=== PATIENT | male | born 1955 | race Caucasian/White ===

== ENCOUNTER 2018-04-08 22:23 | Inpatient (IN) | payer OTHER ==
--- NOTE | 2018-04-08 22:46 | PDOC ---
Attending Attestation - HPI HPI: 04/08/18 22:53 The patient is a 62 year old male, with a significant past medical history of ETOH dependence, who presents to the emergency department via ems from [facility] for ETOH detox for evaluation after a 20 second seizure at the facility just prior to arrival. Allergies: NKDA Documentation prepared by Lilly Mitchell, acting as registered medical transcriptionist for Geovanni Townsend MD <Lilly Mitchell - Last Filed: 04/08/18 22:52> - Resident Resident Name: Luz Marina Patel - ED Attending Attestation I have performed the following: I have examined & evaluated the patient, The case was reviewed & discussed with the resident, I agree w/resident's findings & plan, Exceptions are as noted - Physicial Exam PE: 04/09/18 00:20 Patient is awake, alert, slow to respond, follows simple commands, obese, in no distress Normocephalic, atraumatic PERRLA, EOMI, Conjunctival injection is noted bilaterally; there is no nystagmus mm-dry; several tongue abrasions and ecchymoses and noted bilaterally; there is no loose dentition Neck is supple CTA RRR No rash Moving all extremities symmetrically - Medical Decision Making 04/09/18 00:21 Patient 62-year-old male with history of alcohol abuse who [facility] after a witnessed 20 second generalized tonic-clonic seizure followed by a postictal period. In the ER, patient is nonfocal neurologically , appears somewhat confused and slow to respond, with tongue abrasions and ecchymosis. I suspect alcohol withdrawal seizures. Will obtain head CT to rule out structural abnormality. We'll obtain CBC/CMP/alcohol level. We'll administer thiamin, multivitamins and folic acid. Patient also noted to be tremulous and will receive Ativan when necessary. Likely admission. <Geovanni Townsend - Last Filed: 04/09/18 00:22>
[2018-04-08] MEDS ORDERED: FOLIC ACID INJECTION - 1 MG, THIAMINE HCL 100 MG, MULTIVIT INJECTION ADULT 10 ML in SOD... IVPB ONE (22:48)
--- NOTE | 2018-04-08 23:11 | PDOC ---
History of Present Illness - General Chief Complaint: Seizure Stated Complaint: SEIZURE Time Seen by Provider: 04/08/18 22:37 History Source: Patient, Family Exam Limitations: No Limitations - History of Present Illness Initial Comments: 04/08/18 23:11 62YOM with h/o heavy EtOH use, patient reports never withdrawn from EtOH before , drinks usually 12 beers/day, no drinking for the past 24 hours, who was BIBEMS from [facility] for an apparent seizure. Family witnessed about a 20 second episode of altered level of consciousness and convulsions, which was non-traumatic as the daughter was holding the patient up in his chair. He bit his tongue and bled a small amount on his t-shirt, and both family and EMS report that he was confused subsequently until the point where he arrived in the ED. The patient himself noted tremors and generalized unwell feeling, as well as a wet cough today, but he denies headache, vision change, dizziness, chest pain, SOB, abdominal pain, or other new symptoms. Family expresses concern that he has been having hallucinations over the past 2- 3 weeks which is what prompted them to take him to [facility] last night. [facility] referred them to [facility] for detox. Past History - Past Medical History Allergies/Adverse Reactions: Allergies Allergy/AdvReac Type Severity Reaction Status Date / Time No Known Allergies Allergy Verified 04/08/18 18:15 Home Medications: Ambulatory Orders Lactulose (Oral Use) [Cephulac -] 20 gm PO DAILY #1 bottle 04/14/18 Miscellaneous Medical Supply [Glucometer Device] 1 each SQ ASDIR #1 kit Miscellaneous Medical Supply [Glucometer Test Strips #100] 1 each SQ ASDIR #1 box 04/14/18 Miscellaneous Medical Supply [Lancets] 1 each SQ ASDIR #1 box 04/14/18 metFORMIN HCL [Metformin ER Osmotic] 500 mg PO DAILY #30 [id number] 04/14/18 Anemia: No Asthma: No Cancer: No Cardiac Disorders: No CVA: No COPD: No CHF: No Dementia: No Diabetes: No GI Disorders: No Disorders: No HTN: No Hypercholesterolemia: No Kidney Stones: No Liver Disease: No Seizures: No Thyroid Disease: No - Surgical History Abdominal Surgery: No Appendectomy: No Cardiac Surgery: No Cholecystectomy: No Lung Surgery: No Neurologic Surgery: No Orthopedic Surgery: No - Reproductive History Testicular Surgery: No - Suicide/Smoking/Psychosocial Hx Smoking History: Never smoked Have you smoked in the past 12 months: No Hx Alcohol Use: Yes Drug/Substance Use Hx: No Substance Use Type: Alcohol Hx Substance Use Treatment: No Review of Systems - Review of Systems Able to Perform ROS?: Yes Comments:: GEN: malaise, no fever, chills, generalized weakness, or weight change HEENT: no ear pain, sore throat, vision change, or eye pain CV: no chest pain, palpitations, lightheadedness, or edema RESP: cough, no wheezing, or SOB GI: no abdominal pain, nausea, vomiting, diarrhea, constipation, or white/black/ bloody stool : no dysuria, hematuria, incontinence, retention, bleeding, or discharge MSK: no neck/back pain, muscle weakness/pain, or joint swelling/pain NEURO: seizure, no headache, vertigo, numbness, tingling, or focal weakness PSYCH: EtOH use, hallucinations per family, no behavior change SKIN: no jaundice, no rash ROS otherwise negative except as noted in HPI *Physical Exam - Vital Signs Last Vital Signs Temp Pulse Resp BP Pulse Ox 98.7 F 102 H 20 114/80 92 L 04/08/18 22:39 04/08/18 22:39 04/08/18 22:39 04/08/18 22:39 04/08/18 22:39 - Physical Exam Comments: 04/08/18 23:05 GENERAL: nontoxic but uncomfortable and chronically unwell appearing, A/Ox4, tremulous, answers simple questions appropriately with short answers, HEENT: bilateral scleral injection, PERRLA, EOMI, moist mucous membranes NECK/BACK: no midline ttp, no spinal stepoff or deformity, no hematoma, full ROM , neck supple CARDIOVASCULAR: regular rate/rhythm, normal S1S2, no MGR, strong peripheral pulses, capillary refill <2 seconds, extremities wwp, no edema LUNGS/RESPIRATORY: no respiratory distress, CTAB GI/ABDOMEN: symmetric [id number], normoactive BS, soft, no ttp, no midline pulsatile masses : no CVA tenderness EXTREMITIES: no muscle atrophy, no acute deformity, no edema SKIN: warm and dry, no pallor, no jaundice, no rash, no bruising, no skin breakdown, no cuts, no lesions NEUROLOGICAL: +tongue fasiculations and persistent tremor, no truncal ataxi, GCS 15, CN II-XII grossly intact, 5/5 strength proximally and distally, no facial droop Moderate Sedation - Procedure Monitoring Vital Signs: Procedure Monitoring Vital Signs Temperature 98.7 F 04/08/18 22:39 Pulse Rate 102 H 04/08/18 22:39 Respiratory Rate 20 04/08/18 22:39 Blood Pressure 114/80 04/08/18 22:39 O2 Sat by Pulse Oximetry (%) 92 L 04/08/18 22:39 Heart Score/ECG Review #1 Sinus tach, rate 111, normal axis and intervals, no ischemic ST-T changes. ED Treatment Course - LABORATORY CBC & Chemistry Diagram: 04/14/18 06:22 04/14/18 06:22 - RADIOLOGY Radiology Studies Ordered: Category Date Time Status HEAD CT WITHOUT CONTRAST [CT] Stat CT Scan 04/08/18 22:50 Ordered CXRPORT [CHEST X-RAY PORTABLE*] [RAD] Stat Radiology 04/08/18 22:53 Ordered Medical Decision Making - Medical Decision Making Adult Pt with h/o heavy EtOH use p/w apparent seizure in the setting of 24 hours abstaining from EtOH. Initial Vital Signs Temp Pulse Resp BP Pulse Ox 98.7 F 102 H 20 114/80 92 L 04/08/18 22:39 04/08/18 22:39 04/08/18 22:39 04/08/18 22:39 04/08/18 22:39 Exam: As noted in Physical Exam section. DDX IBNLT: most likely seizure as the patient had postictal period, bit tongue. Most likely cause of seizure toxic-metabolic (e.g. medications, medication withdrawal, street drugs, street drug withdrawal, EtOH, EtOH withdrawal, electrolytes, thyroid), brain lesion (e.g. tumor), stroke, TTP (HUS with AMS, fever, poss seizure), less likely structural (e.g. epilepsy, CVA/TIA), infectious (e.g. UTI, PNA, meningitis), etc. Syncope also considered. W/U ordered: CBCD CMP Mg Phos UA UCx EKG CXR Head CT TX ordered: Banana bag, Thiamine EKG: Reviewed; results as noted in ECG Review section. Laboratory Tests 04/08/18 04/08/18 04/08/18 23:20 23:20 23:20 WBC 5.5 RBC 4.40 Hgb 12.1 Hct 35.0 L MCV 79.6 L MCH 27.5 MCHC 34.5 RDW 19.9 H Plt Count 92 L MPV 7.8 Absolute Neuts (auto) 4.1 Neutrophils % 73.7 Lymphocytes % 18.0 Monocytes % 7.1 Eosinophils % 0.3 Basophils % 0.9 Nucleated RBC % 0 Sodium 136 Potassium 3.5 Chloride 102 Carbon Dioxide 18 L Anion Gap 16 BUN 9 Creatinine 0.9 Creat Clearance w eGFR > 60 Random Glucose 196 H Calcium 8.7 Phosphorus 3.5 Magnesium 2.1 Total Bilirubin 1.3 H AST 125 H ALT 62 H Alkaline Phosphatase 152 H Total Protein 8.6 H Albumin 3.8 Alcohol, Quantitative < 3.0 Reassessment: slight resting tremor, tongue fasciculations improved but still present. Patient was a bit nauseated and was given 4 mg Zofran IV. Vital Signs Temperature 98.7 F 04/08/18 22:39 Pulse Rate 102 H 04/08/18 22:39 Respiratory Rate 20 04/08/18 22:39 Blood Pressure 114/80 04/08/18 22:39 O2 Sat by Pulse Oximetry (%) 92 L 04/08/18 22:39 04/09/18 00:49 I ordered Tdap update as patient cannot recall the date of his last Tdap. Pending CT head results from [facility]. 04/09/18 01:[address] with nothing acute. CXR with no focal consolidation. 04/09/18 02:06 Patient with possible alcohol withdrawal seizure. I have microblogged [facility] for admission. Blank Decision to Admit order placed. Patient's care is endorsed to Dr. Muñiz at the end of my shift. *DC/Admit/Observation/Transfer Diagnosis at time of Disposition: Alcohol withdrawal seizure Qualifiers: Complication of substance-induced condition: with unspecified complication Qualified Code(s): F10.239 - Alcohol dependence with withdrawal, unspecified - Discharge Dispostion Condition at time of disposition: Guarded Decision to Admit order: Yes - Prescriptions - Referrals - Patient Instructions - Post Discharge Activity
[2018-04-08] MEDS ORDERED: THIAMINE HCL 200 MG/2 ML VIAL IVPB ONE (23:20)
[2018-04-08] MEDS ORDERED: LORazepam 2 MG/ML SDV VIAL ONE (23:25)
[2018-04-08 23:31] LABS: BASO % 0.9 % (0-2.0); EOS % 0.3 % (0-4.5); HEMOGLOBIN 12.1 GM/dL (11.7-16.9); MCH 27.5 pg (25.7-33.7); MCHC 34.5 g/dl (32.0-35.9); MEAN CELL VOLUME 79.6 fl (80-96); MEAN PLT VOLUME 7.8 fl (7.5-11.1); MONO % 7.1 % (3.8-10.2); NEUT % 73.7 % (42.8-82.8); PLATELET COUNT 92 K/MM3 (134-434); RDW 19.9 % (11.9-15.9); WHITE BLOOD COUNT 5.5 K/mm3 (4.0-10.0)
[2018-04-08] MEDS ORDERED: ONDANSETRON 4 MG/2 ML VIAL IVPUSH ONE (23:31)
[2018-04-08] MEDS ORDERED: THIAMINE HCL 200 MG/2 ML VIAL ONE (23:38)
[2018-04-08] MEDS ORDERED: ONDANSETRON 4 MG/2 ML VIAL ONE (23:38)
[2018-04-08 23:57] LABS: ALBUMIN 3.8 g/dl (3.4-5.0); ALK PHOS 152 U/L (45-117); ANION GAP 16 MMOL/L (8-16); BILIRUBIN,TOTAL 1.3 mg/dL (0.2-1); BLOOD UREA NITROGEN 9 mg/dL (7-18); CALCIUM 8.7 mg/dL (8.5-10.1); CHLORIDE 102 mmol/L (98-107); CO2 18 mmol/L (21-32); CREATININE 0.9 mg/dL (0.55-1.3); GLUCOSE,RANDOM 196 mg/dL (74-106); MAGNESIUM 2.1 mg/dL (1.8-2.4); PHOSPHOROUS 3.5 mg/dL (2.5-4.9); POTASSIUM 3.5 mmol/L (3.5-5.1); SGOT/AST 125 U/L (15-37); SGPT/ALT 62 U/L (13-61); SODIUM 136 mmol/L (136-145); TOT PROT 8.6 g/dl (6.4-8.2)
[2018-04-09] MEDS ORDERED: DIPHTH,PERTUSS(ACELL),TET 0.5 ML DISP.SYRIN IM ONE ×2 (00:48→01:03)
[2018-04-09 01:43] LABS: INR 1.36 (0.83-1.09); PROTHROMBIN TIME (PATIENT) 16.1 SEC (9.7-13.0)
--- NOTE | 2018-04-09 02:06 | PN ---
Teaching Attending Note Name of Resident: Zulma Vasques ATTENDING PHYSICIAN STATEMENT I saw and evaluated the patient. I reviewed the resident's note and discussed the case with the resident. I agree with the resident's findings and plan as documented. SUBJECTIVE: Patient is a 62 year old man with history of right knee surgery and heavy EtOH use, patient reports never withdrawn from EtOH before, drinks usually 12 beers/ day, no drinking for the past 24 hours, who was BIBEMS from [facility] for an apparent seizure. Family witnessed about a 20 second episode of altered level of consciousness and convulsions, which was non-traumatic as the daughter was holding the patient up in his chair. He bit his tongue and bled a small amount on his t-shirt, and both family and EMS report that he was confused subsequently until the point where he arrived in the ER. The patient himself noted tremors and generalized unwell feeling, as well as a wet cough today, but he denies headache, vision change, dizziness, chest pain, SOB, abdominal pain, or other new symptoms. Family expresses concern that he has been having hallucinations over the past 2-3 weeks which is what prompted them to take him to [facility] last night. [facility] referred them to [facility] for detox. Works as a Manufacturing Storeperson and lives at home with . His 2 daughters are with him in the ER. Nonsmoker. Does not use illicit drugs. He is not on any medications at home. OBJECTIVE: Alert Vital Signs Period Temp Pulse Resp BP Sys/Theodore Pulse Ox Last 24 Hr 98.7 F 102 20 114/80 92 HEENT: No Jaundice, conjucntival injection, +eye redness or discharge, PERRLA, EOMI. Normocephalic, atraumatic. External ears are normal and hearing is grossly intact. No nasal discharge. Neck: Supple, nontender. No palpable adenopathy or thyromegaly. No JVD Chest: Good effort. Clear to auscultation and percussion. Heart: Regular. No S3, rub or murmur Abdomen: Not distended, soft, nontender and no HSM. No rebound or guarding. Normoactive bowel sounds. Ext: Peripheral pulses intact. No leg edema. Limited ROM of both shoulders. Skin: Warm and dry. No petechiae, rash or ecchymosis. Neuro: Alert. Oriented to person and place. No tremors. Sensation grossly intact in all four extremities and DTR are symmetric. Current Medications Generic Name Dose Route Start Last Admin Trade Name Domingo PRN Reason Stop Dose Admin Folic Acid 1 mg/ Thiamine HCl 1,000 mls @ 125 mls/hr 04/08/18 22:48 04/08/18 23:34 100 mg/ Multivitamins/Minerals IVPB 04/09/18 06:47 125 mls/hr 10 ml/ Sodium Chloride ONCE ONE Administration Home Medications Medication Instructions Recorded NK [No Known Home Medication] 04/08/18 Abnormal Lab Results 04/08/18 04/08/18 04/09/18 23:20 23:20 01:00 Hct 35.0 L MCV 79.6 L RDW 19.9 H Plt Count 92 L PT with INR 16.10 H INR 1.36 H Carbon Dioxide 18 L Random Glucose 196 H Total Bilirubin 1.3 H AST 125 H ALT 62 H Alkaline Phosphatase 152 H Total Protein 8.6 H ASSESSMENT AND PLAN: 1. Alcohol withdrawal seizures and Alcohol abuse - Has not had a seizure since being in the ER. No acute pathology on head CT scan. He is already getting a banana bag IV. Will implement CIWA ativan alcohol withdrawal protocol, fall and aspiration precautions. Treat with thiamine and folic acid and monitor electrolytes (Ca,Mg,K,P). Keep him NPO. [facility] Tender patient about abstaining from alcohol and refer to alcohol detox upon discharge. His QTc is 473 so will be cautious with Zofran therapy. Elevated LFTs may signal alcoholic hepatitis. Will get upper abdominal sonogram, hepatitis serology and trend LFTs. Check HbA1c. 2. Anemia - Likely partly due to alcoholism. Low MCV is unusual in this setting so will do basic anemia work up including serial stool guaiacs, reticulocyte count and iron studies. Outpatient colonoscopy. 3. Obesity - Will provide patient all the necessary assistance, counseling and positive reinforcement to facilitate weight loss. Consult painter touch up. 4. DVT prophylaxis - Lovenox 40 mg SQ q 24 hours. 5. Advance directives - Full code
--- NOTE | 2018-04-09 03:28 | HP ---
CHIEF COMPLAINT: alcohol withdrawal sz PCP: HISTORY OF PRESENT ILLNESS: 62 y/o M with hx heavy alcohol use (for past 40 yrs; 2 six-packs of beer most days. Last drink ), noncompliance, who presents to the ED s/p likely alcohol withdrawal seizure that occurred this afternoon. As per pt's daughters at bedside, yesterday at 9AM, pt initially went to [facility] to investigate recent hx of visual hallucinations that pt has been having over the past 2 wks. States that during this time he has also been tremulous. While at , pt had full w/u done and saw a psychiatrist. He was subsequently taken to [facility] for detox this afternoon where he was to begin Librium protocol. While there, his CIWA was 15. During his intake exam, he was noted to have 1 minute of tonic-clonic movements while sitting in a chair, next to his daughter. She states that his eyes rolled to the back of his head, he bit his tongue, however he did not have urinary or fecal incontinence. He was confused after the event and was immediately taken to [facility] ED for further evaluation. Currently while in the ED, pt's CIWA is ~3. Only endorses recent tremulousness and R shoulder pain, worsened upon active movement and palpation. However denies ESCOBAR, fever, chills, recent illnesses, SOB, chest pain or pressure, fall, N /V, or changes in urinary or bowel function. As per daughter, pt is very non-compliant. She has been trying to take him to alcoholics anonymous meetings, as well as doctors appointments but he has refused to go. ER course was notable for: (1) ativan 0.5 mg IVP x 2 (2) banana bag (3) zofran (4) folate, thiamine Recent Travel: denies PAST MEDICAL HISTORY: denies PAST SURGICAL HISTORY: R knee surgery (6 yrs prior) for "issue with cartilage" Social History: lives at home. daughters live nearby. used to work in [employer] but has been unable to do so for the past five months due to his condition Smoking: denies Alcohol: past 40 yrs; 2 six-packs of beer most days. first time at detox yesterday Drugs: denies Family History: denies Allergies No Known Allergies Allergy (Verified 04/08/18 18:15) HOME MEDICATIONS: Home Medications Medication Instructions Recorded NK [No Known Home Medication] 04/08/18 REVIEW OF SYSTEMS CONSTITUTIONAL: Absent: fever, chills, diaphoresis, generalized weakness, malaise, loss of appetite, weight change HEENT: Absent: rhinorrhea, nasal congestion, throat pain, throat swelling, difficulty swallowing, mouth swelling, ear pain, eye pain, visual changes CARDIOVASCULAR: Absent: chest pain, syncope, palpitations, irregular heart rate, lightheadedness , peripheral edema RESPIRATORY: Absent: cough, shortness of breath, dyspnea with exertion, orthopnea, wheezing, stridor, hemoptysis GASTROINTESTINAL: Absent: abdominal pain, abdominal distension, nausea, vomiting, diarrhea, constipation, melena, hematochezia GENITOURINARY: Absent: dysuria, frequency, urgency, hesitancy, hematuria, flank pain, genital pain MUSCULOSKELETAL: Absent: myalgia, arthralgia, joint swelling, back pain, neck pain SKIN: Absent: rash, itching, pallor HEMATOLOGIC/IMMUNOLOGIC: Absent: easy bleeding, easy bruising, lymphadenopathy, frequent infections ENDOCRINE: Absent: unexplained weight gain, unexplained weight loss, heat intolerance, cold intolerance NEUROLOGIC: +seizure Absent: headache, focal weakness or paresthesias, dizziness, unsteady gait, mental status changes, bladder or bowel incontinence PSYCHIATRIC: Absent: anxiety, depression, suicidal or homicidal ideation, hallucinations. PHYSICAL EXAMINATION Vital Signs - 24 hr 04/08/18 04/09/18 22:39 02:20 Temperature 98.7 F Pulse Rate 102 H Pulse Rate [ 115 H Apical] Respiratory 20 20 Rate Blood Pressure 114/80 Blood Pressure 131/76 [Left Arm] O2 Sat by Pulse 92 L 96 Oximetry (%) GENERAL: Lying in bed. AAO x 2 (self, place). in NAD, with blood stain on shirt from saliva HEAD: Normal with no signs of trauma. EYES: Pupils equal, round and reactive to light, extraocular movements intact, sclera anicteric, conjunctiva clear. EARS, NOSE, THROAT: Ears normal, nares patent, oropharynx clear without exudates. Dry mucous membranes NECK: Normal range of motion, supple LUNGS: Breath sounds equal, clear to auscultation bilaterally. No wheezes, and no crackles. No accessory muscle use. HEART: +tachycardic rate and rhythm, without murmur, rub or gallop. ABDOMEN: Soft, nontender, not distended, normoactive bowel sounds, no guarding MUSCULOSKELETAL: +decreased active and passive ROM R shoulder. diffusely TTP LOWER EXTREMITIES: 2+ pt pulses, warm, well-perfused. No calf tenderness. No peripheral edema. NEUROLOGICAL: Cranial nerves II-XII intact. Able to move upper and lower extremities. Sensation intact PSYCHIATRIC: Cooperative. Laboratory Results 04/08/18 04/08/18 04/08/18 23:20 23:20 23:20 MCV 79.6 L Plt Count 92 L AST 125 H ALT 62 H Alkaline Phosphatase 152 H Alcohol, Quantitative < 3.[address]: no acute changes seen, however official read pending EKG: sinus tach, rate 111. no St-T wave changes. Qtc 473ms ASSESSMENT/PLAN: 62 y/o M with hx heavy alcohol use (for past 40 yrs; 2 six-packs of beer most days), noncompliance, who presents to the ED s/p likely alcohol withdrawal seizure that occurred this afternoon. #Likely alcohol withdrawal sz -last drink / as per family. Within the window- 12-48 hrs after . -received ativan 0.5mg x 2 in ED. d/t pt's moderate risk and high initial CIWA ( 15) at detox, will give ativan 1mg q6h AILYN. can use PRN doses as well if needed -received thiamine in ED. can now give glucose in form of D5NS IVF -c/w daily thiamine, folic. -cont to follow lytes -avoid zofran d/t qtc* -sz, fall risk, aspiration precautions. elevate HOB -tele monitoring. recommend keeping pt close to nurse's station for close monitoring -detox consult; -f/u official read Head CT to r/o other causes of sz focus such as masses, bleed etc. pt did not suffer fall as per family #Hx alcohol abuse -continue to follow LFTs, hep serologies -f/u abd sono to check for cirrhosis -nutrition consult #thrombocytopenia likely 2/2 alcohol -cont to follow -if drops further, hold a/c #microcytic anemia -interesting as pt is with alcohol abuse. would expect macrocytic. could have ? bleed, also may have poor nutrition. -f/u iron studies, retic ct -colonoscopy as outpt upon d/c #R shoulder pain -possibly 2/2 DJD. likely acutely exacerbated by sz activity -outpt f/u with additional imaging if does not improve #additional -f/u A1c #F/E/N D5NS 100 cc/hr continue to follow lytes NPO; speech and swallow assessment #PPX lovenox 40mg SQ qd. if platelets continue to decrease, would hold a/c #Dispo tele monitoring, inpt. watch for sz Visit type - Emergency Visit Emergency Visit: Yes ED Registration Date: 04/09/18 Care time: The patient presented to the Emergency Department on the above date and was hospitalized for further evaluation of their emergent condition. - New Patient This patient is new to me today: Yes Date on this admission: 04/09/18 - Critical Care Critical Care patient: No
[2018-04-09] MEDS: DEXTROSE 5%-NORMAL SALINE 1,000 ML IV SCH (04:33)
[2018-04-09 06:00] LABS: BASO % 0.4 % (0-2.0); EOS % 0.1 % (0-4.5); HEMATOCRIT 30.8 % (35.4-49); HEMOGLOBIN 10.1 GM/dL (11.7-16.9); LYMPH % 17.6 % (8-40); MCH 26.4 pg (25.7-33.7); MCHC 32.7 g/dl (32.0-35.9); MEAN CELL VOLUME 80.9 fl (80-96); MONO % 7.8 % (3.8-10.2); NEUT % 74.1 % (42.8-82.8); PLATELET COUNT 71 K/MM3 (134-434); RBC 3.81 M/mm3 (4.00-5.60); RDW 19.5 % (11.9-15.9); RETICULOCYTES 1.54 % (0.5-1.5); WHITE BLOOD COUNT 7.8 K/mm3 (4.0-10.0)
[2018-04-09 06:43] LABS: MAGNESIUM 2.1 mg/dL (1.8-2.4); PHOSPHOROUS 3.3 mg/dL (2.5-4.9)
[2018-04-09] MEDS ORDERED: ENOXAPARIN NA (PORCINE) 40 MG/0.4 ML DISP.SYRIN SQ SCH (10:00)
[2018-04-09] MEDS ORDERED: THIAMINE HCL 200 MG/2 ML VIAL ONE (10:07)
[2018-04-09] MEDS ORDERED: LORazepam 2 MG/ML SDV VIAL ONE (10:08)
[2018-04-09] MEDS ORDERED: FOLIC ACID 1 MG TABLET (FP) ONE (10:08)
[2018-04-09] MEDS ORDERED: ENOXAPARIN NA (PORCINE) 40 MG/0.4 ML DISP.SYRIN SQ ONE (10:08)
[2018-04-09] MEDS: LORazepam 2 MG/ML SDV VIAL IVPUSH SCH ×3 (10:17→23:53)
[2018-04-09] MEDS: FOLIC ACID 5 MG/1 ML SQ SCH (10:18)
[2018-04-09] MEDS: THIAMINE HCL 200 MG/2 ML VIAL IM SCH (10:18)
[2018-04-09] MEDS ORDERED: INSULIN REGULAR HUMAN 100 UNITS/ML *VIAL ONE (10:20)
--- NOTE | 2018-04-09 10:27 | PN ---
Teaching Attending Note ATTENDING PHYSICIAN STATEMENT I saw and evaluated the patient. I reviewed the resident's note and discussed the case with the resident. I agree with the resident's findings and plan as documented. SUBJECTIVE: OBJECTIVE: Vital Signs Temperature 98.2 F 04/09/18 07:00 Pulse Rate 88 04/09/18 07:00 Respiratory Rate 19 04/09/18 07:00 Blood Pressure 120/76 04/09/18 07:00 O2 Sat by Pulse Oximetry (%) 95 04/09/18 07:00 GENERAL: Lying in bed. AAO x 2 (self, place). in NAD, with blood stain on shirt from saliva HEAD: Normal with no signs of trauma. EYES: Pupils equal, round and reactive to light, extraocular movements intact, sclera anicteric, conjunctiva clear. EARS, NOSE, THROAT: Ears normal, oropharynx clear without exudates. Dry mucous membranes NECK: Normal range of motion, supple LUNGS: Breath sounds equal, clear to auscultation bilaterally. No wheezes, and no crackles. No accessory muscle use. HEART: +tachycardic rate and rhythm, without murmur, rub or gallop. ABDOMEN: Soft, nontender, not distended, normoactive bowel sounds, no guarding MUSCULOSKELETAL: +decreased active and passive ROM R shoulder. EXTREMITIES: 2+ pt pulses, warm, well-perfused. No calf tenderness. No peripheral edema. NEUROLOGICAL: Cranial nerves II-XII intact. Able to move upper and lower extremities. Sensation intact PSYCHIATRIC: Cooperative. CBCD WBC 7.8 K/mm3 (4.0-10.0) 04/09/18 05:20 RBC 3.81 M/mm3 (4.00-5.60) L 04/09/18 05:20 Hgb 10.1 GM/dL (11.7-16.9) L 04/09/18 05:20 Hct 30.8 % (35.4-49) L 04/09/18 05:20 MCV 80.9 fl (80-96) 04/09/18 05:20 MCHC 32.7 g/dl (32.0-35.9) 04/09/18 05:20 RDW 19.5 % (11.9-15.9) H 04/09/18 05:20 Plt Count 71 K/MM3 (134-434) L D 04/09/18 05:20 MPV 8.0 fl (7.5-11.1) 04/09/18 05:20 CMP Sodium 136 mmol/L (136-145) 04/08/18 23:20 Potassium 3.5 mmol/L (3.5-5.1) 04/08/18 23:20 Chloride 102 mmol/L (98-107) 04/08/18 23:20 Carbon Dioxide 18 mmol/L (21-32) L 04/08/18 23:20 Anion Gap 16 MMOL/L (8-16) 04/08/18 23:20 BUN 9 mg/dL (7-18) 04/08/18 23:20 Creatinine 0.9 mg/dL (0.55-1.3) 04/08/18 23:20 Creat Clearance w eGFR > 60 (>60) 04/08/18 23:20 Random Glucose 196 mg/dL (74-106) H 04/08/18 23:20 Calcium 8.7 mg/dL (8.5-10.1) 04/08/18 23:20 Total Bilirubin 1.3 mg/dL (0.2-1) H 04/08/18 23:20 AST 125 U/L (15-37) H 04/08/18 23:20 ALT 62 U/L (13-61) H 04/08/18 23:20 Alkaline Phosphatase 152 U/L (45-117) H 04/08/18 23:20 Total Protein 8.6 g/dl (6.4-8.2) H 04/08/18 23:20 Albumin 3.8 g/dl (3.4-5.0) 04/08/18 23:20 Current Medications Generic Name Dose Route Start Last Admin Trade Name Freq PRN Reason Stop Dose Admin Enoxaparin Sodium 40 mg 04/09/18 10:00 04/09/18 10:18 Lovenox - SQ 40 mg DAILY AILYN Administration Folic Acid 1 mg 04/09/18 10:00 04/09/18 10:18 Folic Acid Injection - SQ Not Given DAILY AILYN Dextrose/Sodium Chloride 1,000 mls @ 100 mls/hr 04/09/18 03:15 04/09/18 04:33 D5-Ns - IV 100 mls/hr ASDIR AILYN Administration Lorazepam 1 mg 04/09/18 09:00 04/09/18 10:17 Ativan Injection - IVPUSH 1 mg Q6H-IV AILYN Administration Thiamine HCl 200 mg 04/09/18 10:00 04/09/18 10:18 Vitamin B1 Injection - IM 200 mg DAILY AILYN Administration Home Medications Medication Instructions Recorded NK [No Known Home Medication] 04/08/18 ASSESSMENT AND PLAN: 62 y/o M with hx heavy alcohol use (for past 40 yrs; 2 six-packs of beer most days), noncompliance, who presents to the ED s/p likely alcohol withdrawal seizure that occurred this afternoon. #Likely alcohol withdrawal sz #Hx alcohol abuse #thrombocytopenia #microcytic anemia #R shoulder pain DVT px: lovenox 40mg SQ qd. if platelets continue to decrease, would hold a/c
--- NOTE | 2018-04-09 10:44 | HOSP ---
Subjective - Review of Symptoms Events since last encounter: Patient is feeling better . no signs of withdrawel. Vital Signs Temperature 98.2 F 04/09/18 07:00 Pulse Rate 88 04/09/18 07:00 Respiratory Rate 19 04/09/18 07:00 Blood Pressure 120/76 04/09/18 07:00 O2 Sat by Pulse Oximetry (%) 95 04/09/18 07:00 GENERAL: Lying in bed. AAO x 2 (self, place). in NAD, with blood stain on shirt from saliva HEAD: Normal with no signs of trauma. EYES: Pupils equal, round and reactive to light, extraocular movements intact, sclera anicteric, conjunctiva clear. EARS, NOSE, THROAT: Ears normal, oropharynx clear without exudates. Dry mucous membranes NECK: Normal range of motion, supple LUNGS: Breath sounds equal, clear to auscultation bilaterally. No wheezes, and no crackles. No accessory muscle use. HEART: RRR, without murmur, rub or gallop. ABDOMEN: Soft, nontender, not distended, normoactive bowel sounds, no guarding MUSCULOSKELETAL: decreased active and passive ROM R shoulder. EXTREMITIES: 2+ pt pulses, warm, well-perfused. No calf tenderness. No peripheral edema. NEUROLOGICAL: Cranial nerves II-XII intact. Able to move upper and lower extremities. Sensation intact PSYCHIATRIC: Cooperative. CBCD WBC 7.8 K/mm3 (4.0-10.0) 04/09/18 05:20 RBC 3.81 M/mm3 (4.00-5.60) L 04/09/18 05:20 Hgb 10.1 GM/dL (11.7-16.9) L 04/09/18 05:20 Hct 30.8 % (35.4-49) L 04/09/18 05:20 MCV 80.9 fl (80-96) 04/09/18 05:20 MCHC 32.7 g/dl (32.0-35.9) 04/09/18 05:20 RDW 19.5 % (11.9-15.9) H 04/09/18 05:20 Plt Count 71 K/MM3 (134-434) L D 04/09/18 05:20 MPV 8.0 fl (7.5-11.1) 04/09/18 05:20 CMP Sodium 136 mmol/L (136-145) 04/08/18 23:20 Potassium 3.5 mmol/L (3.5-5.1) 04/08/18 23:20 Chloride 102 mmol/L (98-107) 04/08/18 23:20 Carbon Dioxide 18 mmol/L (21-32) L 04/08/18 23:20 Anion Gap 16 MMOL/L (8-16) 04/08/18 23:20 BUN 9 mg/dL (7-18) 04/08/18 23:20 Creatinine 0.9 mg/dL (0.55-1.3) 04/08/18 23:20 Creat Clearance w eGFR > 60 (>60) 04/08/18 23:20 Random Glucose 196 mg/dL (74-106) H 04/08/18 23:20 Calcium 8.7 mg/dL (8.5-10.1) 04/08/18 23:20 Total Bilirubin 1.3 mg/dL (0.2-1) H 04/08/18 23:20 AST 125 U/L (15-37) H 04/08/18 23:20 ALT 62 U/L (13-61) H 04/08/18 23:20 Alkaline Phosphatase 152 U/L (45-117) H 04/08/18 23:20 Total Protein 8.6 g/dl (6.4-8.2) H 04/08/18 23:20 Albumin 3.8 g/dl (3.4-5.0) 04/08/18 23:20 Current Medications Generic Name Dose Route Start Last Admin Trade Name Domingo PRN Reason Stop Dose Admin Enoxaparin Sodium 40 mg 04/09/18 10:00 04/09/18 10:18 Lovenox - SQ 40 mg DAILY DUNCAN Administration Folic Acid 1 mg 04/09/18 10:00 04/09/18 10:18 Folic Acid Injection - SQ Not Given DAILY DUNCAN Dextrose/Sodium Chloride 1,000 mls @ 100 mls/hr 04/09/18 03:15 04/09/18 04:33 D5-Ns - IV 100 mls/hr ASDIR DUNCAN Administration Lorazepam 1 mg 04/09/18 09:00 04/09/18 10:17 Ativan Injection - IVPUSH 1 mg Q6H-IV DUNCAN Administration Thiamine HCl 200 mg 04/09/18 10:00 04/09/18 10:18 Vitamin B1 Injection - IM 200 mg DAILY DUNCAN Administration Home Medications Medication Instructions Recorded NK [No Known Home Medication] 04/08/[address]: no acute changes seen, however official read pending EKG: sinus tach, rate 111. no St-T wave changes. Qtc 473ms ASSESSMENT/PLAN: Patient is a 62yo male with PMHx heavy alcohol use x 40 yrs; 2 six-packs of beer most days, noncompliance, who presents to the ED s/p likely alcohol withdrawal seizure that occurred this afternoon. #Acute seizure Likely due to alcohol withdrawal will monitor #Hx alcohol dependency drinks around 12 cans of beer on Ativan 1mg duncan. #Thrombocytopenia due to alcohol dependency/liver cirrhosis # Right shoulder pain will monitor DVT: lovenox 40mg started will discontinue Physical Examination Vital Signs: Vital Signs Temperature 98.2 F 04/09/18 07:00 Pulse Rate 88 04/09/18 07:00 Respiratory Rate 19 04/09/18 07:00 Blood Pressure 120/76 04/09/18 07:00 O2 Sat by Pulse Oximetry (%) 95 04/09/18 07:00 Labs: CBC, BMP 04/09/18 05:20 04/08/18 23:20
--- NOTE | 2018-04-09 12:44 | EKG ---
Test Reason : Blood Pressure : / mmHG Vent. Rate : 111 BPM Atrial Rate : 111 BPM P-R Int : 136 ms QRS Dur : 092 ms QT Int : 348 ms P-R-T Axes : 033 -14 042 degrees QTc Int : 473 ms POOR DATA QUALITY, INTERPRETATION MAY BE ADVERSELY AFFECTED SINUS TACHYCARDIA MINIMAL VOLTAGE CRITERIA FOR LVH, MAY BE NORMAL VARIANT NONSPECIFIC ST ABNORMALITY ABNORMAL ECG NO PREVIOUS ECGS AVAILABLE Confirmed by MD JONO, JASON ([id number]) on 04/09/2018 12:44:41 PM Referred By: Confirmed By:JASON DE LA CRUZ MD
[2018-04-09 14:46] VITALS: BMI 27.4
[2018-04-10] MEDS: DEXTROSE 5%-NORMAL SALINE 1,000 ML IV SCH (03:00)
[2018-04-10] MEDS: LORazepam 2 MG/ML SDV VIAL IVPUSH SCH ×3 (06:09→16:09)
[2018-04-10 06:39] LABS: SERUM IRON SATURATION 42 % (15-55); TOTAL IRON BINDING CAPACITY 382 ug/dL (250-450); UIBC 223 ug/dL (111-343)
[2018-04-10] MEDS: THIAMINE HCL 200 MG/2 ML VIAL IM SCH (09:47)
[2018-04-10] MEDS: LIDOCAINE 5% TOPICAL PATCH TP SCH (12:30)
--- NOTE | 2018-04-10 13:27 | PN ---
Physical Exam: SUBJECTIVE: Patient seen and examined. He is complaining of shoulder pain. No overnight events. OBJECTIVE: Vital Signs Period Temp Pulse Resp BP Sys/Theodore Pulse Ox Last 24 Hr 98.3 F-100.1 F 72-108 16-20 118-138/67-84 97-97 GENERAL: The patient is awake, alert, and fully oriented, in no acute distress. HEAD: Normal with no signs of trauma. EYES: Extraocular movements intact, sclera anicteric, conjunctiva clear. No ptosis. ENT: Oropharynx clear without exudates, moist mucous membranes. NECK: Trachea midline, full range of motion, supple. LUNGS: Clear to auscultation bilaterally, no wheezes, no crackles, no accessory muscle use. HEART: Regular rate and rhythm, S1, S2 without murmur, rub or gallop. ABDOMEN: Soft, nontender, nondistended, normoactive bowel sounds, no guarding, no rebound, no hepatosplenomegaly, no masses. EXTREMITIES: 2+ pulses, no edema. NEUROLOGICAL: non focal, normal speech, gait not observed. PSYCH: Normal mood, normal affect. SKIN: Warm, dry, normal turgor, no rashes. Laboratory Results - last 24 hr 04/09/18 04/09/18 05:20 05:20 Iron 159 TIBC 382 Iron Saturation 42 Transferrin 318 Hep Bs Antibody Non reactive Active Medications Generic Name Dose Route Start Last Admin Trade Name Hiramq PRN Reason Stop Dose Admin Folic Acid 1 mg 04/09/18 10:00 04/09/18 10:18 Folic Acid Injection - SQ Not Given DAILY AILYN Dextrose/Sodium Chloride 1,000 mls @ 100 mls/hr 04/09/18 03:15 04/10/18 03:00 D5-Ns - IV 100 mls/hr ASDIR AILYN Administration Lidocaine 1 patch 04/10/18 10:45 Lidoderm Patch - TP DAILY AILYN Lorazepam 1 mg 04/09/18 09:00 04/10/18 06:09 Ativan Injection - IVPUSH 1 mg Q6H-IV AILYN Administration Miscellaneous 1 each 04/10/18 22:00 Lidoderm Patch Removal MC DAILY@2200 AILYN Thiamine HCl 200 mg 04/09/18 10:00 04/10/18 09:47 Vitamin B1 Injection - IM 200 mg DAILY AILYN Administration ASSESSMENT/PLAN: 62 y/o M with history of alcohol use presents to the ED s/p likely alcohol withdrawal seizure. Seizure: -likely caused by alcohol withdrawal -no more seizues in the hospital -cont. ativan 1 mg q6h AILYN. can use PRN doses as well if needed -c/w thiamine, folic acid -monitor electrolytes -fall risk precautions, aspiration precautions -elevate HOB -f/u detox consult; Dr.Madhava Mobley alcohol abuse -continue to follow LFTs, hep serologies pending -nutrition consult -thiamine, folic acid, D5NS Thrombocytopenia - likely due alcohol -71 today, stable microcytic anemia -likely due to GI bleed -colonoscopy as outpt R shoulder pain -possibly OA -Lidoderm patch ordered today -outpt f/u F/E/N D5NS at 100 cc/hr continue to follow lytes NPO advanced to soft diet today PPX lovenox 40mg SQ qd Dispo tele Problem List - Problems (1) Alcohol dependence with uncomplicated withdrawal Code(s): F10.230 - ALCOHOL DEPENDENCE WITH WITHDRAWAL, UNCOMPLICATED (2) Alcohol withdrawal seizure Code(s): F10.239 - ALCOHOL DEPENDENCE WITH WITHDRAWAL, UNSPECIFIED; R56.9 - UNSPECIFIED CONVULSIONS Qualifiers: Complication of substance-induced condition: with unspecified complication Qualified Code(s): F10.239 - Alcohol dependence with withdrawal, unspecified; R56.9 - Unspecified convulsions Visit type - Emergency Visit Emergency Visit: Yes ED Registration Date: 04/09/18 Care time: The patient presented to the Emergency Department on the above date and was hospitalized for further evaluation of their emergent condition. - New Patient This patient is new to me today: Yes Date on this admission: 04/10/18 - Critical Care Critical Care patient: No - Discharge Referral Referred to [facility] Med [facility].: No
[2018-04-10] MEDS: FOLIC ACID 5 MG/1 ML SQ SCH (16:08)
[2018-04-10] MEDS ORDERED: chlordiazePOXIDE HCL 25 MG CAPSULE PO PRN ×2 (17:51→19:54)
[2018-04-10] MEDS ORDERED: THIAMINE HCL 200 MG/2 ML VIAL IVPB SCH (18:00)
--- NOTE | 2018-04-10 18:01 | PN ---
Teaching Attending Note Name of Resident: Minna Easley ATTENDING PHYSICIAN STATEMENT I saw and evaluated the patient. I reviewed the resident's note and discussed the case with the resident. I agree with the resident's findings and plan as documented. SUBJECTIVE: Patient is agitated, wants to get out of the bed. OBJECTIVE: Vital Signs Temperature 99.4 F 04/10/18 13:00 Pulse Rate 102 H 04/10/18 13:00 Respiratory Rate 20 04/10/18 13:00 Blood Pressure 130/78 04/10/18 13:00 O2 Sat by Pulse Oximetry (%) 97 04/10/18 09:00 GENERAL: Lying in bed. mildly agitated , confused. HEAD: Normal with no signs of trauma. EYES: Pupils equal, round and reactive to light, extraocular movements intact, sclera anicteric, conjunctiva clear. EARS, NOSE, THROAT: Ears normal, oropharynx clear without exudates. Dry mucous membranes NECK: Normal range of motion, supple LUNGS: Breath sounds equal, clear to auscultation bilaterally. No wheezes, and no crackles. No accessory muscle use. HEART: RRR, without murmur, rub or gallop. ABDOMEN: Soft, nontender, not distended, normoactive bowel sounds, no guarding EXTREMITIES: 2+ pt pulses, warm, well-perfused. No calf tenderness. No peripheral edema. NEUROLOGICAL: Cranial nerves II-XII intact. Able to move upper and lower extremities. Sensation intact PSYCHIATRIC: Cooperative. CBCD WBC 7.8 K/mm3 (4.0-10.0) 04/09/18 05:20 RBC 3.81 M/mm3 (4.00-5.60) L 04/09/18 05:20 Hgb 10.1 GM/dL (11.7-16.9) L 04/09/18 05:20 Hct 30.8 % (35.4-49) L 04/09/18 05:20 MCV 80.9 fl (80-96) 04/09/18 05:20 MCHC 32.7 g/dl (32.0-35.9) 04/09/18 05:20 RDW 19.5 % (11.9-15.9) H 04/09/18 05:20 Plt Count 71 K/MM3 (134-434) L D 04/09/18 05:20 MPV 8.0 fl (7.5-11.1) 04/09/18 05:20 CMP Sodium 136 mmol/L (136-145) 04/08/18 23:20 Potassium 3.5 mmol/L (3.5-5.1) 04/08/18 23:20 Chloride 102 mmol/L (98-107) 04/08/18 23:20 Carbon Dioxide 18 mmol/L (21-32) L 04/08/18 23:20 Anion Gap 16 MMOL/L (8-16) 04/08/18 23:20 BUN 9 mg/dL (7-18) 04/08/18 23:20 Creatinine 0.9 mg/dL (0.55-1.3) 04/08/18 23:20 Creat Clearance w eGFR > 60 (>60) 04/08/18 23:20 Random Glucose 196 mg/dL (74-106) H 04/08/18 23:20 Calcium 8.7 mg/dL (8.5-10.1) 04/08/18 23:20 Total Bilirubin 1.3 mg/dL (0.2-1) H 04/08/18 23:20 AST 125 U/L (15-37) H 04/08/18 23:20 ALT 62 U/L (13-61) H 04/08/18 23:20 Alkaline Phosphatase 152 U/L (45-117) H 04/08/18 23:20 Total Protein 8.6 g/dl (6.4-8.2) H 04/08/18 23:20 Albumin 3.8 g/dl (3.4-5.0) 04/08/18 23:20 Current Medications Generic Name Dose Route Start Last Admin Trade Name Freq PRN Reason Stop Dose Admin Chlordiazepoxide HCl 25 mg 04/10/18 17:51 Librium - PO 04/13/18 17:50 Q4H PRN WITHDRAWAL(CONT SUBST) Folic Acid 1 mg 04/09/18 10:00 04/10/18 16:08 Folic Acid Injection - SQ 1 mg DAILY AILYN Administration Lidocaine 1 patch 04/10/18 10:45 04/10/18 12:30 Lidoderm Patch - TP 1 patch DAILY AILYN Administration Lorazepam 1 mg 04/09/18 09:00 04/10/18 16:09 Ativan Injection - IVPUSH 1 mg Q6H-IV AILYN Administration Miscellaneous 1 each 04/10/18 22:00 Lidoderm Patch Removal MC DAILY@2200 AILYN Thiamine HCl 250 mg 04/10/18 18:00 Vitamin B1 Injection - IVPB DAILY AILYN Home Medications Medication Instructions Recorded NK [No Known Home Medication] 04/08/[address]: no acute changes seen, however official read pending EKG: sinus tach, rate 111. no St-T wave changes. Qtc 473ms ASSESSMENT/PLAN: Patient is a 62yo male with PMHx heavy alcohol use x 40 yrs; 2 six-packs of beer most days, noncompliance who presents to the ED with questionable alcohol withdrawal seizure #Acute seizure Likely due to alcohol withdrawal will continue to monitor #Hx alcohol dependency drinks around 12 cans of beer on Ativan 1mg ailyn. and on Librium 25mg prn, and on possy now. #Thrombocytopenia due to alcohol dependency/liver cirrhosis # Right shoulder pain Lidocaine patch daily DVT: lovenox 40mg started will discontinue
[2018-04-10] MEDS ORDERED: chlordiazePOXIDE HCL 25 MG CAPSULE PO ONE (19:54)
[2018-04-10] MEDS ORDERED: LORazepam 2 MG/ML SDV VIAL IVPUSH ONE ×2 (20:39→21:20)
--- NOTE | 2018-04-10 20:48 | RAPID ---
Physical Examination Vital Signs: Vital Signs Temperature 100.9 F H 04/10/18 17:00 Pulse Rate 122 H 04/10/18 17:00 Respiratory Rate 20 04/10/18 17:00 Blood Pressure 147/87 04/10/18 17:00 O2 Sat by Pulse Oximetry (%) 97 04/10/18 09:00 Labs: CBC, BMP 04/09/18 05:20 04/08/18 23:20 Rapid Response - Rapid Response Assessment: rapid response called pt agitated, anxious, refusing PO librium and trying to get out of bed and fighting restraints tachycardia to 140s and diaphoretic in distress CIWA 25 will give STAT ativan 2mg IV for DTs and will increase to standing 2mg q3h prn will closely monitor response and monitor vitals and CIWA
[2018-04-10] MEDS ORDERED: LORazepam 2 MG/ML SDV VIAL ONE (21:26)
[2018-04-10] MEDS: LIDOCAINE PATCH REMOVAL MC SCH (22:05)
[2018-04-10] MEDS ORDERED: diazePAM CARPU-JECT 10 MG/2 ML DISP.SYRIN IVPUSH ONE (22:42)
--- NOTE | 2018-04-10 22:45 | PN ---
[facility] Progress Note (SOAP) Subjective: patient referred for consultation , transferred from [facility] after witnessed seizure - per MR h/o ETOh use 6-pk beer x 2 40 years with no prior detox episode , [facility] . Patient is poor historian , aware of self and , unaware of place, insists he has to get up and go to work . Prior events this evening noted - patient currently on soft restraints, monitored 1:1 by nursing , agitated , trying to undress himself , resting in bed ( hallway ) . Current meds : Ativan q 3 hrs prn , has been given 4 mg today . Home Medication List Medication Instructions Recorded Confirmed Type NK [No Known Home Medication] 04/08/18 04/08/18 History Objective: 04/10/18 22:40 CBC WBC 7.8 K/mm3 (4.0-10.0) 04/09/18 05:20 RBC 3.81 M/mm3 (4.00-5.60) L 04/09/18 05:20 Hgb 10.1 GM/dL (11.7-16.9) L 04/09/18 05:20 Hct 30.8 % (35.4-49) L 04/09/18 05:20 MCV 80.9 fl (80-96) 04/09/18 05:20 MCH 26.4 pg (25.7-33.7) 04/09/18 05:20 MCHC 32.7 g/dl (32.0-35.9) 04/09/18 05:20 RDW 19.5 % (11.9-15.9) H 04/09/18 05:20 Plt Count 71 K/MM3 (134-434) L D 04/09/18 05:20 MPV 8.0 fl (7.5-11.1) 04/09/18 05:20 Absolute Neuts (auto) 5.8 K/mm3 (1.5-8.0) 04/09/18 05:20 Neutrophils % 74.1 % (42.8-82.8) 04/09/18 05:20 Lymphocytes % 17.6 % (8-40) 04/09/18 05:20 Monocytes % 7.8 % (3.8-10.2) 04/09/18 05:20 Eosinophils % 0.1 % (0-4.5) 04/09/18 05:20 Basophils % 0.4 % (0-2.0) 04/09/18 05:20 Nucleated RBC % 0 % (0-0) 04/09/18 05:20 Retic Count 1.54 % (0.5-1.5) H 04/09/18 05:20 CMP Sodium 136 mmol/L (136-145) 04/08/18 23:20 Potassium 3.5 mmol/L (3.5-5.1) 04/08/18 23:20 Chloride 102 mmol/L (98-107) 04/08/18 23:20 Carbon Dioxide 18 mmol/L (21-32) L 04/08/18 23:20 Anion Gap 16 MMOL/L (8-16) 04/08/18 23:20 BUN 9 mg/dL (7-18) 04/08/18 23:20 Creatinine 0.9 mg/dL (0.55-1.3) 04/08/18 23:20 Creat Clearance w eGFR > 60 (>60) 04/08/18 23:20 Random Glucose 196 mg/dL (74-106) H 04/08/18 23:20 Hemoglobin A1c % 7.3 % (4.2-6.3) H 04/09/18 04:30 Calcium 8.7 mg/dL (8.5-10.1) 04/08/18 23:20 Phosphorus 3.3 mg/dL (2.5-4.9) 04/09/18 05:20 Magnesium 2.1 mg/dL (1.8-2.4) 04/09/18 05:20 Iron 159 ug/dL (38-169) 04/09/18 05:20 TIBC 382 ug/dL (250-450) 04/09/18 05:20 Iron Saturation 42 % (15-55) 04/09/18 05:20 Transferrin 318 mg/dL (200-370) 04/09/18 05:20 Total Bilirubin 1.3 mg/dL (0.2-1) H 04/08/18 23:20 AST 125 U/L (15-37) H 04/08/18 23:20 ALT 62 U/L (13-61) H 04/08/18 23:20 Alkaline Phosphatase 152 U/L (45-117) H 04/08/18 23:20 Total Protein 8.6 g/dl (6.4-8.2) H 04/08/18 23:20 Albumin 3.8 g/dl (3.4-5.0) 04/08/18 23:20 04/10/18 23:26 Vital Signs - 24 hr 04/10/18 04/10/18 04/10/18 01:59 05:00 09:00 Temperature 98.9 F 99.5 F 99.2 F Pulse Rate 105 H 103 H 108 H Respiratory 20 20 20 Rate Blood Pressure 137/77 118/67 130/83 O2 Sat by Pulse 97 Oximetry (%) 04/10/18 04/10/18 04/10/18 13:00 16:00 17:00 Temperature 99.4 F 100.9 F H Pulse Rate 102 H 110 H 122 H Respiratory 20 20 20 Rate Blood Pressure 130/78 130/72 147/87 O2 Sat by Pulse Oximetry (%) 04/10/18 04/10/18 21:00 22:00 Temperature 99.0 F Pulse Rate 108 H Respiratory 20 Rate Blood Pressure 154/88 O2 Sat by Pulse 98 99 Oximetry (%) Assessment: etoh withdrawal , complicated 04/10/18 23:26 Plan: Diazepam IV - per pharmacy not available , will start Arivan 4 mg q 6 hrs and continue prn for breakthrough symptoms , encourage fluids Ammonia level . pt unable to tolerate p.o. meds at this time
[2018-04-10] MEDS ORDERED: chlordiazePOXIDE HCL 25 MG CAPSULE PO SCH (23:00)
[2018-04-11 00:07] LABS: HEPATITIS B CORE ANTIBODY,IGM Negative (Negative)
[2018-04-11] MEDS: LORazepam 2 MG/ML SDV VIAL IVPUSH SCH ×5 (00:15→23:19)
[2018-04-11] MEDS: LORazepam 2 MG/ML SDV VIAL IVPUSH PRN ×3 (03:32→15:27)
[2018-04-11] MEDS: THIAMINE HCL 200 MG/2 ML VIAL IVPB SCH ×4 (05:55→22:26)
[2018-04-11] MEDS ORDERED: diazePAM CARPU-JECT 10 MG/2 ML DISP.SYRIN IVPUSH SCH (06:00)
[2018-04-11 07:33] LABS: ALBUMIN 3.3 g/dl (3.4-5.0); ALK PHOS 82 U/L (45-117); ANION GAP 7 MMOL/L (8-16); BILIRUBIN,TOTAL 2.4 mg/dL (0.2-1); BLOOD UREA NITROGEN 5 mg/dL (7-18); CALCIUM 7.9 mg/dL (8.5-10.1); CHLORIDE 104 mmol/L (98-107); CO2 26 mmol/L (21-32); CREATININE 0.6 mg/dL (0.55-1.3); GLUCOSE,RANDOM 146 mg/dL (74-106); MAGNESIUM 1.8 mg/dL (1.8-2.4); PHOSPHOROUS 1.7 mg/dL (2.5-4.9); SGOT/AST 85 U/L (15-37); SGPT/ALT 42 U/L (13-61); SODIUM 137 mmol/L (136-145); TOT PROT 7.2 g/dl (6.4-8.2)
[2018-04-11 07:36] LABS: POTASSIUM 2.5 mmol/L (3.5-5.1)
[2018-04-11] MEDS ORDERED: POTASSIUM CHLORIDE TABS 20 MEQ TABLET.ER (FP) PO ONE ×2 (08:23→20:10)
[2018-04-11] MEDS: KCL 10 MEQ IVPB 10 MEQ/100 ML INFUS.BAG IVPB SCH ×6 (08:35→22:59)
[2018-04-11 08:38] LABS: HEMATOCRIT 30.4 % (35.4-49); HEMOGLOBIN 10.8 GM/dL (11.7-16.9); MCH 28.6 pg (25.7-33.7); MCHC 35.3 g/dl (32.0-35.9); MEAN PLT VOLUME 8.3 fl (7.5-11.1); PLATELET COUNT 82 K/MM3 (134-434); RBC 3.75 M/mm3 (4.00-5.60); RDW 19.9 % (11.9-15.9); WHITE BLOOD COUNT 9.1 K/mm3 (4.0-10.0)
--- NOTE | 2018-04-11 09:17 | CONSULT ---
Admitting History and Physical - Primary Care Physician PCP: Ko Deshpande - Admission History of Present Illness: 62 y/o M with history of alcohol use presents to the ED s/p likely alcohol withdrawal seizure. Selected Entries 04/09/18 04/09/18 04/09/18 07:00 14:40 17:00 Breakfast Supper Temperature 98.2 F 99.3 F 98.3 F 04/09/18 04/09/18 04/10/18 19:17 22:00 01:59 Breakfast Supper NPO Temperature 100.1 F H 98.9 F 04/10/18 04/10/18 04/10/18 05:00 09:00 09:55 Breakfast NPO Supper Temperature 99.5 F 99.2 F 04/10/18 04/10/18 04/10/18 13:00 17:00 19:32 Breakfast Supper 50% Temperature 99.4 F 100.9 F H 04/10/18 04/11/18 04/11/18 22:00 02:00 06:00 Breakfast Supper Temperature 99.0 F 98.5 F 98.2 F Laboratory Tests 04/11/18 05:30 WBC 9.1 Started on soft diet/thin liquids. Yesterday afternoon, rapid response called as pt became agitated, anxious, refusing PO librium and trying to get out of bed and fighting restraints. Tachycardia to 140s and diaphoretic and was in distress STAT ativan 2mg IV for DTs and increased to standing 2mg q3h prn Pt seen just waking up. Confused but verbal, cooperative. History Source: Medical Record Limitations to Obtaining History: Clinical Condition - Smoking History Smoking history: Never smoked Have you smoked in the past 12 months: No - Alcohol/Substance Use Hx Alcohol Use: Yes (12 daily) History - Admission Reason For Visit: ALCOHOL WITHDRAWAL SEIZURE - Diagnostics X-ray: Report Reviewed CT Scan: Report Reviewed - General Mental Status: Awake and Alert, Able to Follow Commands, Vague, Confused Attention: Distractible, Mild Impairment Ability to Follow Directions: Fair Head/Neck Control: Good - Hearing Hearing: Normal Hearing Aide: No With Patient: No Speech Evaluation - Communication Primary Language: SOUTH KOREAN Secondary Language: SUDANESE (functional) Communication: Yes: Within Normal Limits Oral Expression Ability: Yes: No Impairment - Speech Production Able to Make Needs Known: Yes: WNL Intelligibility: Yes: Mildly Impaired - Speech Characteristics Voice Loudness: Normal Voice Pitch: Yes: Normal Voice Phonatory-based Quality: Yes: Normal Speech Pattern: Normal Nasal Resonance: Normal Articulation: Yes: Imprecise (mild, likely secondary to medication.) Rate of Speech: Too Slow (mild,likely secondary to medication.) - Language/Auditory Comprehension Follows: Yes: 1 Stage Simple Commands Observation: Able to respond to yes/no queries: Yes, Benefits from Repetiton: Yes - Language/Verbal Expression Able to Communicate Wants and Needs: Yes: WNL Functional Communication Status: Yes: WNL - Swallow Evaluation/Bedside Assessment Current Nutritional Intake: Soft, Thin Liquids Oral Secretions: Yes: WFL Dentition: Yes: Adequate Facial Symmetry at Rest: Symmetrical Facial Symmetry on Retraction: Symmetrical Against Resistance Opening: Normal Against Resistance Closing: Normal Pucker Lips: Normal Smile: Normal Lingual Movement: Normal, Symmetric Lingual Speed of Movement: Reduced (likely secondary to medication.) Lingual Movement Strgth Against Opposition: Normal Lingual Movement Characteristics: Normal Laryngeal Elevation: WFL Laryngeal Movement: Able to Palpate Rate of Intake: WFL Bolus Size: WFL Labial Seal: WFL Chewing: WFL (extended.) Oral Prep Time: Increased A-P Transit: WFL Pocketing: Present Left Timing of Swallow: Delayed Coughing/Throat Clear: No Change in Voice: No Recommendations - Speech Evaluation, Impression/Plan Impression: Articulation mildly imprecise and reduced in velocity likely secondary to medication.Confused but cooperative. Verbal. Burkinan is functional. Swallowing is functional. Extended mastication likely secondary to distractibility. No overt signs of aspiration. - Dysphagia Impressions/Plan Dysphagia Impressions: Mild Impairment *Silent aspiration: cannot be R/O at bedside Dysphagia Treatment Plan: Small Bites, Chin Tuck/Down, Clear Pocket Food, Safe Rate, 1/2 tsp. at a time, Elevate HOB during feed, Other (Alternate solids with wiquids and complete meal with liquid. Assistance with meals.) Recommendations: Other (Re-orient pt frequently.) - Recommendations Diet Consistency: Regular (soft) Medication Administration: Whole with water Liquids: Thin Liquids
[2018-04-11] MEDS: FOLIC ACID 5 MG/1 ML SQ SCH (09:54)
[2018-04-11] MEDS: LIDOCAINE 5% TOPICAL PATCH TP SCH (09:54)
[2018-04-11] MEDS: ACETAMINOPHEN 325 MG TABLET (FP) PO PRN (12:01)
--- NOTE | 2018-04-11 15:40 | PN ---
Progress Note (short form) - Note Progress Note: ID consult dictated impl/reccd intermittent fever ETOH withdrawal wtoh seizure prior to admission at detox 04/08 agree with cultures no signs infection on exam observe off antibiotics Problem List - Problems (1) Fever Code(s): R50.9 - FEVER, UNSPECIFIED (2) Alcohol dependence with uncomplicated withdrawal Code(s): F10.230 - ALCOHOL DEPENDENCE WITH WITHDRAWAL, UNCOMPLICATED (3) Alcohol withdrawal seizure Code(s): F10.239 - ALCOHOL DEPENDENCE WITH WITHDRAWAL, UNSPECIFIED; R56.9 - UNSPECIFIED CONVULSIONS Qualifiers: Complication of substance-induced condition: with unspecified complication Qualified Code(s): F10.239 - Alcohol dependence with withdrawal, unspecified; R56.9 - Unspecified convulsions
--- NOTE | 2018-04-11 17:33 | PN ---
Physical Exam: SUBJECTIVE: Patient seen and examined at bedside this morning. Patient has been in and out of wakefulness all day. Rapid response called last night as patient was agitated, tachycardic, and in distress, refusing PO Librium. Patient was also seen by Dr. Prabhakar. Ativan 4mg q6h AILYN (5 doses) and 2mg q3h PRN were ordered. This morning, patient also presented with fever of 102F. OBJECTIVE: Vital Signs Period Temp Pulse Resp BP Sys/Theodore Pulse Ox Last 24 Hr 98.2 F-99.6 F 108-122 20-20 126-154/69-88 95-99 GENERAL: The patient is lethargic, arousable to voice and pain. HEAD: Normal with no signs of trauma. EYES/HEENT: PERRLA, dry mucous membranes. NECK: Trachea midline, full range of motion, supple. LUNGS: Breath sounds equal, clear to auscultation bilaterally. HEART: Tachycardic, without murmur, rub or gallop. ABDOMEN: Soft, nontender, nondistended, normoactive bowel sounds. EXTREMITIES: 2+ pulses, warm, well-perfused, no edema. SKIN: Warm, dry, normal turgor. Laboratory Results - last 24 hr 04/09/18 04/11/18 04/11/18 05:20 00:00 05:30 WBC 9.1 RBC 3.75 L Hgb 10.8 L Hct 30.4 L MCV 81.0 MCH 28.6 MCHC 35.3 RDW 19.9 H Plt Count 82 L MPV 8.3 Sodium Potassium Chloride Carbon Dioxide Anion Gap BUN Creatinine Creat Clearance w eGFR Random Glucose Calcium Phosphorus Magnesium Total Bilirubin Direct Bilirubin AST ALT Alkaline Phosphatase Ammonia 67.40 H Total Protein Albumin Hep B Core IgM Ab Negative Hepatitis Be Antigen Negative 04/11/18 04/11/18 05:30 05:30 WBC RBC Hgb Hct MCV MCH MCHC RDW Plt Count MPV Sodium 137 Potassium 2.5 L* Chloride 104 Carbon Dioxide 26 Anion Gap 7 L BUN 5 L Creatinine 0.6 Creat Clearance w eGFR > 60 Random Glucose 146 H Calcium 7.9 L Phosphorus 1.7 L Magnesium 1.8 Total Bilirubin 2.4 H Direct Bilirubin 1.1 H AST 85 H ALT 42 Alkaline Phosphatase 82 Ammonia Total Protein 7.2 Albumin 3.3 L Hep B Core IgM Ab Hepatitis Be Antigen Active Medications Generic Name Dose Route Start Last Admin Trade Name Domingo PRN Reason Stop Dose Admin Acetaminophen 650 mg 04/11/18 10:13 04/11/18 12:01 Tylenol - PO 650 mg Q6H PRN Administration Fever Or Pain Folic Acid 1 mg 04/09/18 10:00 04/11/18 09:54 Folic Acid Injection - SQ 1 mg DAILY AILYN Administration Lidocaine 1 patch 04/10/18 10:45 04/11/18 09:54 Lidoderm Patch - TP 1 patch DAILY AILYN Administration Lorazepam 2 mg 04/10/18 20:50 04/11/18 15:27 Ativan Injection - IVPUSH 2 mg Q3H PRN Administration ANXIETY Lorazepam 4 mg 04/10/18 23:30 04/11/18 12:01 Ativan Injection - IVPUSH 04/11/18 23:31 4 mg Q6H AILYN Administration Miscellaneous 1 each 04/10/18 22:00 04/10/18 22:05 Lidoderm Patch Removal MC Not Given DAILY@2200 AILYN Thiamine HCl 250 mg 04/10/18 22:00 04/11/18 15:27 Vitamin B1 Injection - IVPB 250 mg TID AILYN Administration ASSESSMENT/PLAN: Patient is a 62 year old male with past medical history of heavy EtOH abuse, presented to the ED after an episode of witnessed tonic-clonic seizure at [facility]. #Seizure: likely 2/2 alcohol withdrawal -No episodes of seizures in the hospital -Detox (Dr. Prabhakar) consulted. Recommendations appreciated. -Ativan 4mg q6h for 5 doses -Ativan 2mg q3h PRN -Ammonia level - 67.4 -Hepatitis panel - pending -Thiamine 100mg daily -Folic acid 1mg daily -Follow LFTs -Nutrition consult. -Electrolytes monitor and repleted PRN -Fall risk precautions -Aspiration precautions -Elevate HOB #Fever: unknown etiology -Blood Cx and UA/Urine cx ordered -ID (Dr. Newsome) consulted. REcommendations appreciated. -No signs of infection on exam -Will await cultures -Will observe off antibiotics #Hypokalemia -K 2.5 -IV KCL 10meq x3 bags given -K-dur 20 meq PO -Repeat bmp #Transaminitis likely 2/2 EtOH abuse -AST/ALT 85/42, improving -RUQ US: fatty liver vs hepatocellular disease -Thiamine 100mg daily -Folic acid 1mg daily -Follow LFTs #Thrombocytopenia -likely 2/2 EtOH abuse -82 today, improving #Microcytic anemia -likely due to GI bleed, poor oral intake, EtOH abuse -Colonoscopy as outpatient #FEN -Not on any standing fluids -Hypokalemia, replete PRN -Routine bmp monitoring -Regular diet as tolerated #Prophylaxis -Lovenox 40mg sq daily #Disposition -full code -Tele Visit type - Emergency Visit Emergency Visit: Yes ED Registration Date: 04/09/18 Care time: The patient presented to the Emergency Department on the above date and was hospitalized for further evaluation of their emergent condition. - New Patient This patient is new to me today: Yes Date on this admission: 04/11/18 - Critical Care Critical Care patient: No
[2018-04-11 17:34] LABS: ANION GAP 5 MMOL/L (8-16); BLOOD UREA NITROGEN 7 mg/dL (7-18); CALCIUM 7.8 mg/dL (8.5-10.1); CHLORIDE 104 mmol/L (98-107); CO2 29 mmol/L (21-32); CREATININE 0.5 mg/dL (0.55-1.3); GLUCOSE,RANDOM 135 mg/dL (74-106); SODIUM 138 mmol/L (136-145)
--- NOTE | 2018-04-11 17:40 | PN ---
Progress Note (short form) - Note Progress Note: ID consult dictated impl/reccd intermittent fever ETOH withdrawal etoh seizure prior to admission at detox 04/08 agree with cultures no signs infection on exam observe off antibiotics Problem List - Problems (1) Fever Code(s): R50.9 - FEVER, UNSPECIFIED (2) Alcohol dependence with uncomplicated withdrawal Code(s): F10.230 - ALCOHOL DEPENDENCE WITH WITHDRAWAL, UNCOMPLICATED (3) Alcohol withdrawal seizure Code(s): F10.239 - ALCOHOL DEPENDENCE WITH WITHDRAWAL, UNSPECIFIED; R56.9 - UNSPECIFIED CONVULSIONS Qualifiers: Qualified Code(s): F10.239 - Alcohol dependence with withdrawal, unspecified ; R56.9 - Unspecified convulsions
--- NOTE | 2018-04-11 18:28 | CONS ---
INFECTIOUS DISEASE CONSULTATION DATE OF CONSULTATION: DATE OF DICTATION: 04/13/2018 REQUESTING PHYSICIAN: The hospitalist service. This is a 62-year-old man who was admitted from [facility] from the detoxification program. He has a history of a 40-year use of heavy alcohol, two 6-packs of beers most days, who presented to the ER status post an alcohol withdrawal seizure that occurred that afternoon. He had initially gone to [facility] because he had been having visual hallucinations, was very tremulous. He had a full workup done then. He was taken to [facility] for detoxification where he began a Librium protocol. While there, he was noted to have a 1-minute tonic-clonic seizure activity while sitting in a chair. He was brought to the emergency room on the . Since that time, he has had worsening alcohol withdrawal. He was seen by the detoxification doctors and required an Ativan protocol. PAST MEDICAL HISTORY: Notable for heavy alcohol use. He has had right knee surgery 6 years ago. SOCIAL HISTORY: He lives at home. He was working as a automotive airconditioning mechanic, but has been unable to do so for the last 5 months. No smoking history of substance use. FAMILY HISTORY: Unremarkable. ALLERGIES: He has no known drug allergies. All this history was obtained from the chart. Medication list at home was not available. REVIEW OF SYSTEMS: Currently, he has had some intermittent low-grade fever. The last was 100.9 yesterday, and prior to that was 100.1 the prior day. I am asked him to him for these fevers. PHYSICAL EXAMINATION: General: He is currently arousable, following simple commands, but otherwise is not cooperating. The director school of nursing reports that she is able to feed him and he does not cough and he is eating. Vital Signs: Temperature is 99.6, pulse of 112, blood pressure 126/76. Respiratory rate is 20. His O2 saturation is 95%. HEENT: He is normocephalic. His eyes are anicteric. He has no thrush. He has dry oral mucosa. Lungs: Clear to auscultation. Heart: Regular rate and rhythm. Abdomen: Soft, nontender. Extremities: Without edema. He has a large ecchymosis on his left upper arm. DIAGNOSTIC DATA: White count is 9.1, hemoglobin 10.8, platelets are 82,000. INR is 1.3. BUN is 7 and creatinine 0.5. Total bilirubin is 2.4 with an AST of 85, ALT of 42, alkaline phosphatase 82. Ammonia was 67. Alcohol level was negative. Chest x-ray was negative for infiltrate. In summary, this is a 62-year-old man with intermittent fever, alcohol withdrawal, witnessed alcohol withdrawal seizure prior to admission. I would agree with blood cultures. He has no signs of infection on exam off antibiotics at present. Further recommendations to follow. Willa [id number]
[2018-04-11 18:31] LABS: POTASSIUM 2.7 mmol/L (3.5-5.1)
--- NOTE | 2018-04-11 18:44 | PN ---
Teaching Attending Note Name of Resident: Arline Magallon ATTENDING PHYSICIAN STATEMENT I saw and evaluated the patient. I reviewed the resident's note and discussed the case with the resident. I agree with the resident's findings and plan as documented. SUBJECTIVE: Patient is confused. OBJECTIVE: Vital Signs Temperature 99.6 F 04/11/18 14:00 Pulse Rate 112 H 04/11/18 14:00 Respiratory Rate 20 04/11/18 06:00 Blood Pressure 126/76 04/11/18 14:00 O2 Sat by Pulse Oximetry (%) 95 04/11/18 06:00 GENERAL: The patient is lethargic, arousable to voice and pain. HEAD: Normal with no signs of trauma. EYES/HEENT: PERRLA, dry mucous membranes. NECK: Trachea midline, full range of motion, supple. LUNGS: Breath sounds equal, clear to auscultation bilaterally. HEART: Tachycardic, without murmur, rub or gallop. ABDOMEN: Soft, nontender, nondistended, normoactive bowel sounds. EXTREMITIES: 2+ pulses, warm, well-perfused, no edema. SKIN: Warm, dry, normal turgor. CBCD WBC 9.1 K/mm3 (4.0-10.0) 04/11/18 05:30 RBC 3.75 M/mm3 (4.00-5.60) L 04/11/18 05:30 Hgb 10.8 GM/dL (11.7-16.9) L 04/11/18 05:30 Hct 30.4 % (35.4-49) L 04/11/18 05:30 MCV 81.0 fl (80-96) 04/11/18 05:30 MCHC 35.3 g/dl (32.0-35.9) 04/11/18 05:30 RDW 19.9 % (11.9-15.9) H 04/11/18 05:30 Plt Count 82 K/MM3 (134-434) L 04/11/18 05:30 MPV 8.3 fl (7.5-11.1) 04/11/18 05:30 CMP Sodium 138 mmol/L (136-145) 04/11/18 15:30 Potassium 2.7 mmol/L (3.5-5.1) L* 04/11/18 15:30 Chloride 104 mmol/L (98-107) 04/11/18 15:30 Carbon Dioxide 29 mmol/L (21-32) 04/11/18 15:30 Anion Gap 5 MMOL/L (8-16) L 04/11/18 15:30 BUN 7 mg/dL (7-18) 04/11/18 15:30 Creatinine 0.5 mg/dL (0.55-1.3) L 04/11/18 15:30 Creat Clearance w eGFR > 60 (>60) 04/11/18 15:30 Random Glucose 135 mg/dL (74-106) H 04/11/18 15:30 Calcium 7.8 mg/dL (8.5-10.1) L 04/11/18 15:30 Total Bilirubin 2.4 mg/dL (0.2-1) H 04/11/18 05:30 AST 85 U/L (15-37) H 04/11/18 05:30 ALT 42 U/L (13-61) 04/11/18 05:30 Alkaline Phosphatase 82 U/L (45-117) 04/11/18 05:30 Total Protein 7.2 g/dl (6.4-8.2) 04/11/18 05:30 Albumin 3.3 g/dl (3.4-5.0) L 04/11/18 05:30 Current Medications Generic Name Dose Route Start Last Admin Trade Name Freq PRN Reason Stop Dose Admin Acetaminophen 650 mg 04/11/18 10:13 04/11/18 12:01 Tylenol - PO 650 mg Q6H PRN Administration Fever Or Pain Folic Acid 1 mg 04/09/18 10:00 04/11/18 09:54 Folic Acid Injection - SQ 1 mg DAILY AILYN Administration Lidocaine 1 patch 04/10/18 10:45 04/11/18 09:54 Lidoderm Patch - TP 1 patch DAILY AILYN Administration Lorazepam 2 mg 04/10/18 20:50 04/11/18 15:27 Ativan Injection - IVPUSH 2 mg Q3H PRN Administration ANXIETY Lorazepam 4 mg 04/10/18 23:30 04/11/18 12:01 Ativan Injection - IVPUSH 04/11/18 23:31 4 mg Q6H AILYN Administration Miscellaneous 1 each 04/10/18 22:00 04/10/18 22:05 Lidoderm Patch Removal MC Not Given DAILY@2200 [facility] Thiamine HCl 250 mg 04/10/18 22:00 04/11/18 15:27 Vitamin B1 Injection - IVPB 250 mg TID [facility] Administration Home Medications Medication Instructions Recorded NK [No Known Home Medication] 04/08/[address]: no acute changes seen, however official read pending EKG: sinus tach, rate 111. no St-T wave changes. Qtc 473ms ASSESSMENT/PLAN: Patient is a 62yo male with PMHx heavy alcohol use x 40 yrs; 2 six-packs of beer most days, noncompliance who presents to the ED with questionable alcohol withdrawal seizure #Acute seizure Likely due to alcohol withdrawal will continue to monitor , confused due alcoholic liver. #Hx alcohol dependency drinks around 12 cans of beer on Ativan protocol per detox and on possy now. #Thrombocytopenia due to alcohol dependency/liver cirrhosis # Right shoulder pain Lidocaine patch daily DVT: lovenox 40mg started will discontinue
[2018-04-11] MEDS: LIDOCAINE PATCH REMOVAL MC SCH (22:13)
[2018-04-11] MEDS ORDERED: chlordiazePOXIDE HCL 25 MG CAPSULE PO SCH (23:00)
[2018-04-11 23:05] LABS: URINE APPEARANCE CLEAR; URINE BILIRUBIN NEGATIVE (<2.0 mg/dL); URINE COLOR AMBER; URINE GLUCOSE (UA) NEGATIVE (NEGATIVE); URINE KETONE NEGATIVE (NEGATIVE); URINE LEUK ESTERASE NEGATIVE (NEGATIVE); URINE NITRITE NEGATIVE (NEGATIVE); URINE PROTEIN 1+ (NEGATIVE); URINE UROBILINOGEN 4.0 E.U/dl mg/dL (0.2-1.0)
[2018-04-11 23:09] LABS: URINE MUCUS MODERATE
[2018-04-12 02:59] LABS: ANION GAP 5 MMOL/L (8-16); BLOOD UREA NITROGEN 7 mg/dL (7-18); CALCIUM 7.8 mg/dL (8.5-10.1); CHLORIDE 104 mmol/L (98-107); CO2 28 mmol/L (21-32); CREATININE 0.5 mg/dL (0.55-1.3); GLUCOSE,RANDOM 159 mg/dL (74-106); POTASSIUM 3.2 mmol/L (3.5-5.1); SODIUM 137 mmol/L (136-145)
[2018-04-12] MEDS ORDERED: KCL 10 MEQ IVPB 10 MEQ/100 ML INFUS.BAG IVPB SCH (03:15)
[2018-04-12] MEDS ORDERED: POTASSIUM CHLORIDE TABS 20 MEQ TABLET.ER (FP) PO ONE ×2 (03:30→08:57)
[2018-04-12] MEDS: LORazepam 2 MG/ML SDV VIAL IVPUSH PRN (05:55)
[2018-04-12] MEDS: THIAMINE HCL 200 MG/2 ML VIAL IVPB SCH ×3 (05:57→21:17)
[2018-04-12 06:51] LABS: BASO % 0.6 % (0-2.0); EOS % 1.6 % (0-4.5); HEMATOCRIT 30.6 % (35.4-49); HEMOGLOBIN 9.8 GM/dL (11.7-16.9); LYMPH % 25.3 % (8-40); MCH 26.7 pg (25.7-33.7); MCHC 31.9 g/dl (32.0-35.9); MEAN CELL VOLUME 83.7 fl (80-96); MEAN PLT VOLUME 8.2 fl (7.5-11.1); MONO % 14.8 % (3.8-10.2); NEUT % 57.7 % (42.8-82.8); PLATELET COUNT 96 K/MM3 (134-434); RBC 3.65 M/mm3 (4.00-5.60); RDW 20.2 % (11.9-15.9); WHITE BLOOD COUNT 7.1 K/mm3 (4.0-10.0)
[2018-04-12 07:25] LABS: ALBUMIN 2.7 g/dl (3.4-5.0); ALK PHOS 78 U/L (45-117); ANION GAP 6 MMOL/L (8-16); BILIRUBIN,TOTAL 2.2 mg/dL (0.2-1); BLOOD UREA NITROGEN 8 mg/dL (7-18); CALCIUM 7.9 mg/dL (8.5-10.1); CHLORIDE 104 mmol/L (98-107); CO2 28 mmol/L (21-32); CREATININE 0.6 mg/dL (0.55-1.3); GLUCOSE,RANDOM 127 mg/dL (74-106); PHOSPHOROUS 2.2 mg/dL (2.5-4.9); POTASSIUM 3.2 mmol/L (3.5-5.1); SGOT/AST 90 U/L (15-37); SGPT/ALT 38 U/L (13-61); SODIUM 137 mmol/L (136-145); TOT PROT 6.5 g/dl (6.4-8.2)
[2018-04-12] MEDS ORDERED: PT OWN MED DRAWER 7, Y5N ONE ×2 (08:53→12:26)
[2018-04-12] MEDS ORDERED: NAPH,MB-DB/K PH,MBDB POWDER PACKET PO ONE (08:57)
--- NOTE | 2018-04-12 09:36 | PN ---
S CIWA - CIWA Score Nausea/Vomitin-No Nausea/No Vomiting Muscle Tremors: 2 Anxiety: 4-Mod. Anxious/Guarded Agitation: 2 Paroxysmal Sweats: 1-Minimal Palms Moist Orientation: 1-Uncertain about Date Tacttile Disturbances: 0-None Auditory Disturbances: 0-None Visual Disturbances: 0-None Headache: 2-Mild CIWA-Ar Total Score: 12 S Progress Note (SOAP) Subjective: patient seen, improved mentation from previous exam , reports etoh use 2 x 6- pk x many years , cannot specify , reports drinking more heavily since living with family . Denies nausea/ vomiting/ diarrhea/ constipation , + mild ESCOBAR . Meds reviewed , currently on prn Ativan 2 mg q 3 hrs Objective: wnwd , resting in bed comfortably , mild distress , UE tremors , slight agitation , random leg movements 04/12/18 10:29 CBCD WBC 7.1 K/mm3 (4.0-10.0) 04/12/18 05:30 RBC 3.65 M/mm3 (4.00-5.60) L 04/12/18 05:30 Hgb 9.8 GM/dL (11.7-16.9) L 04/12/18 05:30 Hct 30.6 % (35.4-49) L 04/12/18 05:30 MCV 83.7 fl (80-96) 04/12/18 05:30 MCHC 31.9 g/dl (32.0-35.9) L 04/12/18 05:30 RDW 20.2 % (11.9-15.9) H 04/12/18 05:30 Plt Count 96 K/MM3 (134-434) L 04/12/18 05:30 MPV 8.2 fl (7.5-11.1) 04/12/18 05:30 CMP Sodium 137 mmol/L (136-145) 04/12/18 05:30 Potassium 3.2 mmol/L (3.5-5.1) L 04/12/18 05:30 Chloride 104 mmol/L (98-107) 04/12/18 05:30 Carbon Dioxide 28 mmol/L (21-32) 04/12/18 05:30 Anion Gap 6 MMOL/L (8-16) L 04/12/18 05:30 BUN 8 mg/dL (7-18) 04/12/18 05:30 Creatinine 0.6 mg/dL (0.55-1.3) 04/12/18 05:30 Creat Clearance w eGFR > 60 (>60) 04/12/18 05:30 Calcium 7.9 mg/dL (8.5-10.1) L 04/12/18 05:30 Total Bilirubin 2.2 mg/dL (0.2-1) H 04/12/18 05:30 AST 90 U/L (15-37) H 04/12/18 05:30 ALT 38 U/L (13-61) 04/12/18 05:30 Alkaline Phosphatase 78 U/L (45-117) 04/12/18 05:30 Total Protein 6.5 g/dl (6.4-8.2) 04/12/18 05:30 Albumin 2.7 g/dl (3.4-5.0) L 04/12/18 05:30 ammonia 67.6 Assessment: alcohol withdrawal , complicated Plan: continue Lorazepam taper d/w in- house hospitalist Dr Deshpande regarding high ammonia level, per hospitalist they will address this . d/w patient regarding in-patient rehab after detox , patient reports he is unsure at this time if he wants to go .
[2018-04-12] MEDS: LACTULOSE 20 GM/30 ML UDC (FOR ORAL USE ONLY) PO SCH ×2 (10:20→21:17)
[2018-04-12] MEDS: LORazepam 2 MG/ML SDV VIAL IVPUSH SCH ×2 (10:20→17:09)
[2018-04-12] MEDS: LIDOCAINE 5% TOPICAL PATCH TP SCH (10:21)
--- NOTE | 2018-04-12 10:57 | PN ---
Progress Note, [employer] - Note Progress Note: Selected Entries 04/11/18 04/11/18 04/11/18 02:00 06:00 10:12 Breakfast 75% Lunch Temperature 98.5 F 98.2 F 04/11/18 04/11/18 04/12/18 14:00 20:59 02:00 Breakfast Lunch 75% Temperature 99.6 F 98.7 F 99.5 F 04/12/18 04/12/18 05:48 10:00 Breakfast Lunch Temperature 99.4 F 98.8 F Laboratory Tests 04/12/18 05:30 WBC 7.1
[2018-04-12] MEDS: FOLIC ACID 5 MG/1 ML SQ SCH (12:33)
--- NOTE | 2018-04-12 15:56 | PN ---
Physical Exam: SUBJECTIVE: Patient seen and examined at bedside this morning. Patient has been in and out of wakefulness all night. Confused when awake. On Ativan protocol. OBJECTIVE: Vital Signs Period Temp Pulse Resp BP Sys/Theodore Pulse Ox Last 24 Hr 98.7 F-99.5 F 82-114 18-20 106-128/65-77 98-98 GENERAL: The patient is awake, confused, oriented x1, not in acute distress HEAD: Normal with no signs of trauma. EYES/HEENT: PERRLA, dry mucous membranes. NECK: Trachea midline, full range of motion, supple. LUNGS: Breath sounds equal, clear to auscultation bilaterally. HEART: Regular rate and rhythm, without murmur, rub or gallop. ABDOMEN: Soft, nontender, nondistended, normoactive bowel sounds. EXTREMITIES: 2+ pulses, warm, well-perfused, no edema. SKIN: Warm, dry, normal turgor. Laboratory Results - last 24 hr 04/09/18 04/11/18 04/11/18 05:20 10:40 15:30 WBC RBC Hgb Hct MCV MCH MCHC RDW Plt Count MPV Absolute Neuts (auto) Neutrophils % Lymphocytes % Monocytes % Eosinophils % Basophils % Nucleated RBC % Sodium 138 Potassium 2.7 L* Chloride 104 Carbon Dioxide 29 Anion Gap 5 L BUN 7 Creatinine 0.5 L Creat Clearance w eGFR > 60 Random Glucose 135 H Calcium 7.8 L Phosphorus Magnesium Total Bilirubin AST ALT Alkaline Phosphatase Total Protein Albumin Urine Color Abena Urine Appearance Clear Urine pH 5.0 Ur Specific [place] 1.026 Urine Protein 1+ H Urine Glucose (UA) Negative Urine Ketones Negative Urine Blood 3+ H Urine Nitrite Negative Urine Bilirubin Negative Urine Urobilinogen 4.0 e.u/dl Ur Leukocyte Esterase Negative Urine WBC (Auto) 2 Urine RBC (Auto) 9 Urine Mucus Moderate Hepatitis Be Antibody Negative 04/12/18 04/12/18 04/12/18 02:20 05:30 05:30 WBC 7.1 RBC 3.65 L Hgb 9.8 L Hct 30.6 L MCV 83.7 MCH 26.7 MCHC 31.9 L RDW 20.2 H Plt Count 96 L MPV 8.2 Absolute Neuts (auto) 4.1 Neutrophils % 57.7 D Lymphocytes % 25.3 D Monocytes % 14.8 H D Eosinophils % 1.6 D Basophils % 0.6 Nucleated RBC % 0 Sodium 137 137 Potassium 3.2 L 3.2 L Chloride 104 104 Carbon Dioxide 28 28 Anion Gap 5 L 6 L BUN 7 8 Creatinine 0.5 L 0.6 Creat Clearance w eGFR > 60 > 60 Random Glucose 159 H 127 H Calcium 7.8 L 7.9 L Phosphorus 2.2 L Magnesium 2.0 2.0 Total Bilirubin 2.2 H AST 90 H ALT 38 Alkaline Phosphatase 78 Total Protein 6.5 Albumin 2.7 L Urine Color Urine Appearance Urine pH Ur Specific [place] Urine Protein Urine Glucose (UA) Urine Ketones Urine Blood Urine Nitrite Urine Bilirubin Urine Urobilinogen Ur Leukocyte Esterase Urine WBC (Auto) Urine RBC (Auto) Urine Mucus Hepatitis Be Antibody Active Medications Generic Name Dose Route Start Last Admin Trade Name Freq PRN Reason Stop Dose Admin Acetaminophen 650 mg 04/11/18 10:13 04/11/18 12:01 Tylenol - PO 650 mg Q6H PRN Administration Fever Or Pain Folic Acid 1 mg 04/09/18 10:00 04/12/18 12:33 Folic Acid Injection - SQ 1 mg DAILY AILYN Administration Lactulose 30 gm 04/12/18 10:00 04/12/18 10:20 Cephulac (Oral Use) PO 30 gm BID AILYN Administration Lidocaine 1 patch 04/10/18 10:45 04/12/18 10:21 Lidoderm Patch - TP 1 patch DAILY AILYN Administration Lorazepam 2 mg 04/10/18 20:50 04/12/18 05:55 Ativan Injection - IVPUSH 2 mg Q3H PRN Administration ANXIETY Lorazepam 2 mg 04/12/18 09:30 04/12/18 10:20 Ativan Injection - IVPUSH 04/13/18 01:31 2 mg Q8H AILYN Administration Lorazepam 1 mg 04/13/18 06:00 Ativan Injection - IVPUSH 04/13/18 22:01 Q8H AILYN Lorazepam 0.5 mg 04/14/18 08:00 Ativan Injection - IVPUSH 04/14/18 20:01 Q12H AILYN Miscellaneous 1 each 04/10/18 22:00 04/11/18 22:13 Lidoderm Patch Removal MC Not Given DAILY@2200 AILYN Thiamine HCl 250 mg 04/10/18 22:00 04/12/18 13:16 Vitamin B1 Injection - IVPB 250 mg TID AILYN Administration ASSESSMENT/PLAN: Patient is a 62 year old male with past medical history of heavy EtOH abuse, presented to the ED after an episode of witnessed tonic-clonic seizure at [facility]. #Seizure: likely 2/2 alcohol withdrawal -No episodes of seizures in the hospital -Detox (Dr. Prabhakar) consulted. Recommendations appreciated. -Ativan 4mg q6h for 5 doses completed -Ativan protocol started today. -Ativan 2mg q3h PRN -Ammonia level - 67.4 -Lactulose 30gm BID -Hepatitis panel - negative -Thiamine 100mg daily -Folic acid 1mg daily -Follow LFTs -Nutrition consult. -Electrolytes monitor and repleted PRN -Fall risk precautions -Aspiration precautions -Elevate HOB #Fever: unknown etiology -Blood Cx negative for 24 hours -UA/Urine cx ordered -ID (Dr. Newsome) consulted. Recommendations appreciated. -No signs of infection on exam -Will await cultures -Will observe off antibiotics #Hypokalemia -K 3.2 -KCl PO and IV given -Repeat bmp #Transaminitis likely 2/2 EtOH abuse -RUQ US: fatty liver vs hepatocellular disease -Thiamine 100mg daily -Folic acid 1mg daily -Follow LFTs #Thrombocytopenia -likely 2/2 EtOH abuse -124 today, improving #Microcytic anemia -likely due to GI bleed, poor oral intake, EtOH abuse -Colonoscopy as outpatient #FEN -Not on any standing fluids -Hypokalemia, replete PRN -Routine bmp monitoring -Regular diet as tolerated #Prophylaxis -Lovenox 40mg sq daily #Disposition -full code -Tele Visit type - Emergency Visit Emergency Visit: Yes ED Registration Date: 04/09/18 Care time: The patient presented to the Emergency Department on the above date and was hospitalized for further evaluation of their emergent condition. - New Patient This patient is new to me today: No - Critical Care Critical Care patient: No
[2018-04-12] MEDS: ACETAMINOPHEN 325 MG TABLET (FP) PO PRN (17:09)
--- NOTE | 2018-04-12 19:37 | PN ---
Teaching Attending Note Name of Resident: Manisha Reese ATTENDING PHYSICIAN STATEMENT I saw and evaluated the patient. I reviewed the resident's note and discussed the case with the resident. I agree with the resident's findings and plan as documented. SUBJECTIVE: Patient is better today , still withdrawing confused on and off OBJECTIVE: Vital Signs Temperature 99 F 04/12/18 14:05 Pulse Rate 82 04/12/18 14:05 Respiratory Rate 20 04/12/18 14:05 Blood Pressure 116/74 04/12/18 14:05 O2 Sat by Pulse Oximetry (%) 98 04/12/18 09:00 GENERAL: The patient is lethargic, but more awake today. HEAD: Normal with no signs of trauma. EYES/HEENT: PERRLA, dry mucous membranes. NECK: Trachea midline, full range of motion, supple. LUNGS: Breath sounds equal, clear to auscultation bilaterally. HEART: RRR, without murmur, rub or gallop. ABDOMEN: Soft, nontender, nondistended, normoactive bowel sounds. EXTREMITIES: 2+ pulses, warm, well-perfused, no edema. SKIN: Warm, dry, normal turgor. CBCD WBC 7.1 K/mm3 (4.0-10.0) 04/12/18 05:30 RBC 3.65 M/mm3 (4.00-5.60) L 04/12/18 05:30 Hgb 9.8 GM/dL (11.7-16.9) L 04/12/18 05:30 Hct 30.6 % (35.4-49) L 04/12/18 05:30 MCV 83.7 fl (80-96) 04/12/18 05:30 MCHC 31.9 g/dl (32.0-35.9) L 04/12/18 05:30 RDW 20.2 % (11.9-15.9) H 04/12/18 05:30 Plt Count 96 K/MM3 (134-434) L 04/12/18 05:30 MPV 8.2 fl (7.5-11.1) 04/12/18 05:30 CMP Sodium 137 mmol/L (136-145) 04/12/18 05:30 Potassium 3.2 mmol/L (3.5-5.1) L 04/12/18 05:30 Chloride 104 mmol/L (98-107) 04/12/18 05:30 Carbon Dioxide 28 mmol/L (21-32) 04/12/18 05:30 Anion Gap 6 MMOL/L (8-16) L 04/12/18 05:30 BUN 8 mg/dL (7-18) 04/12/18 05:30 Creatinine 0.6 mg/dL (0.55-1.3) 04/12/18 05:30 Creat Clearance w eGFR > 60 (>60) 04/12/18 05:30 Random Glucose 127 mg/dL (74-106) H 04/12/18 05:30 Calcium 7.9 mg/dL (8.5-10.1) L 04/12/18 05:30 Total Bilirubin 2.2 mg/dL (0.2-1) H 04/12/18 05:30 AST 90 U/L (15-37) H 04/12/18 05:30 ALT 38 U/L (13-61) 04/12/18 05:30 Alkaline Phosphatase 78 U/L (45-117) 04/12/18 05:30 Total Protein 6.5 g/dl (6.4-8.2) 04/12/18 05:30 Albumin 2.7 g/dl (3.4-5.0) L 04/12/18 05:30 Current Medications Generic Name Dose Route Start Last Admin Trade Name Freq PRN Reason Stop Dose Admin Acetaminophen 650 mg 04/11/18 10:13 04/12/18 17:09 Tylenol - PO 650 mg Q6H PRN Administration Fever Or Pain Folic Acid 1 mg 04/09/18 10:00 04/12/18 12:33 Folic Acid Injection - SQ 1 mg DAILY AILYN Administration Lactulose 30 gm 04/12/18 10:00 04/12/18 10:20 Cephulac (Oral Use) PO 30 gm BID AILYN Administration Lidocaine 1 patch 04/10/18 10:45 04/12/18 10:21 Lidoderm Patch - TP 1 patch DAILY AILYN Administration Lorazepam 2 mg 04/10/18 20:50 04/12/18 05:55 Ativan Injection - IVPUSH 2 mg Q3H PRN Administration ANXIETY Lorazepam 2 mg 04/12/18 09:30 04/12/18 17:09 Ativan Injection - IVPUSH 04/13/18 01:31 2 mg Q8H AILYN Administration Lorazepam 1 mg 04/13/18 06:00 Ativan Injection - IVPUSH 04/13/18 22:01 Q8H AILYN Lorazepam 0.5 mg 04/14/18 08:00 Ativan Injection - IVPUSH 04/14/18 20:01 Q12H AILYN Miscellaneous 1 each 04/10/18 22:00 04/11/18 22:13 Lidoderm Patch Removal MC Not Given DAILY@2200 AILYN Thiamine HCl 250 mg 04/10/18 22:00 04/12/18 13:16 Vitamin B1 Injection - IVPB 250 mg TID AILYN Administration Home Medications Medication Instructions Recorded NK [No Known Home Medication] 04/08/[address]: no acute changes seen, however official read pending EKG: sinus tach, rate 111. no St-T wave changes. Qtc 473ms ASSESSMENT/PLAN: Patient is a 62yo male with PMHx heavy alcohol use x 40 yrs; 2 six-packs of beer most days, noncompliance who presents to the ED with questionable alcohol withdrawal seizure # Elevated Ammonia level , patient is placed on lactulose, follow the patient. #Acute seizure Likely due to alcohol withdrawal will continue to monitor. #Hx alcohol dependency drinks around 12 cans of beer continue detox protocol and on possy now. #Thrombocytopenia due to alcohol dependency/liver cirrhosis # Right shoulder pain Lidocaine patch daily DVT: lovenox 40mg started will discontinue
[2018-04-12] MEDS: LIDOCAINE PATCH REMOVAL MC SCH (21:17)
[2018-04-12] MEDS ORDERED: chlordiazePOXIDE 5 MG CAPSULE PO SCH (23:00)
[2018-04-13] MEDS: LORazepam 2 MG/ML SDV VIAL IVPUSH SCH ×4 (01:03→22:07)
[2018-04-13] MEDS: THIAMINE HCL 200 MG/2 ML VIAL IVPB SCH ×2 (05:49→14:53)
[2018-04-13 07:47] LABS: BASO % 0.7 % (0-2.0); EOS % 2.9 % (0-4.5); HEMATOCRIT 28.8 % (35.4-49); HEMOGLOBIN 9.3 GM/dL (11.7-16.9); LYMPH % 30.6 % (8-40); MCH 27.1 pg (25.7-33.7); MCHC 32.2 g/dl (32.0-35.9); MEAN PLT VOLUME 7.7 fl (7.5-11.1); MONO % 20.3 % (3.8-10.2); NEUT % 45.5 % (42.8-82.8); PLATELET COUNT 107 K/MM3 (134-434); RBC 3.43 M/mm3 (4.00-5.60); RDW 20.5 % (11.9-15.9); WHITE BLOOD COUNT 4.3 K/mm3 (4.0-10.0)
[2018-04-13 08:20] LABS: ALBUMIN 2.6 g/dl (3.4-5.0); ALK PHOS 108 U/L (45-117); ANION GAP 10 MMOL/L (8-16); BILIRUBIN,TOTAL 1.8 mg/dL (0.2-1); BLOOD UREA NITROGEN 6 mg/dL (7-18); CALCIUM 7.6 mg/dL (8.5-10.1); CHLORIDE 106 mmol/L (98-107); CO2 24 mmol/L (21-32); CREATININE 0.4 mg/dL (0.55-1.3); GLUCOSE,RANDOM 132 mg/dL (74-106); MAGNESIUM 1.7 mg/dL (1.8-2.4); POTASSIUM 3.3 mmol/L (3.5-5.1); SGOT/AST 105 U/L (15-37); SGPT/ALT 42 U/L (13-61); SODIUM 140 mmol/L (136-145); TOT PROT 6.3 g/dl (6.4-8.2)
[2018-04-13] MEDS ORDERED: MAGNESIUM OXIDE 400 MG TABLET (FP) PO ONE (08:57)
[2018-04-13] MEDS: POTASSIUM CHLORIDE TABS 20 MEQ TABLET.ER (FP) PO SCH ×2 (09:19→22:06)
[2018-04-13] MEDS: LIDOCAINE 5% TOPICAL PATCH TP SCH (09:19)
[2018-04-13] MEDS: LACTULOSE 20 GM/30 ML UDC (FOR ORAL USE ONLY) PO SCH ×2 (09:19→22:07)
[2018-04-13] MEDS ORDERED: PT OWN MED DRAWER 7, Y5N ONE (11:40)
[2018-04-13] MEDS: LORazepam 2 MG/ML SDV VIAL IVPUSH PRN (11:43)
--- NOTE | 2018-04-13 11:56 | PN ---
Progress Note, [employer] - Note Progress Note: Selected Entries 04/12/18 04/12/18 04/12/18 02:00 05:48 10:00 Breakfast Lunch Supper Temperature 99.5 F 99.4 F 98.8 F 04/12/18 04/12/18 04/12/18 11:45 13:03 14:05 Breakfast 100% Lunch 25% Supper Temperature 99 F 04/12/18 04/12/18 04/12/18 17:00 20:02 21:11 Breakfast Lunch Supper 100% Temperature 100.3 F H 98.6 F 04/13/18 04/13/18 02:00 05:25 Breakfast Lunch Supper Temperature 98.2 F 98.3 F Laboratory Tests 04/13/18 06:28 WBC 4.3 Tolerates diet when sufficiently aroused. Aspiration precautions.
[2018-04-13 12:58] LABS: ANISOCYTOSIS 1+; MACROCYTOSIS 0; PLATELET ESTIMATE DECREASED
--- NOTE | 2018-04-13 17:52 | PN ---
Physical Exam: SUBJECTIVE: Patient seen and examined at bedside this morning. Patient remained to be in and out of wakefulness. Still on Ativan protocol. As per nursing, patient had no episodes of agitation and has been lying on the bed and watching TV. He has no complaints. OBJECTIVE: Vital Signs Period Temp Pulse Resp BP Sys/Theodore Pulse Ox Last 24 Hr 98.2 F-98.6 F 89-115 20-20 109-130/71-82 98 GENERAL: The patient is awake, confused, oriented x1, not in acute distress HEAD: Normal with no signs of trauma. EYES/HEENT: PERRLA, dry mucous membranes. NECK: Trachea midline, full range of motion, supple. LUNGS: Breath sounds equal, clear to auscultation bilaterally. HEART: Regular rate and rhythm, without murmur, rub or gallop. ABDOMEN: Soft, nontender, nondistended, normoactive bowel sounds. EXTREMITIES: 2+ pulses, warm, well-perfused, no edema. SKIN: Warm, dry, normal turgor. Laboratory Results - last 24 hr 04/13/18 04/13/18 06:28 06:28 WBC 4.3 RBC 3.43 L Hgb 9.3 L Hct 28.8 L MCV 84.0 MCH 27.1 MCHC 32.2 RDW 20.5 H Plt Count 107 L MPV 7.7 Absolute Neuts (auto) 2.0 Neutrophils % 45.5 D Neutrophils % (Manual) 50.0 Band Neutrophils % 0.0 Lymphocytes % 30.6 D Lymphocytes % (Manual) 22.0 Monocytes % 20.3 H Monocytes % (Manual) 13 H Eosinophils % 2.9 D Eosinophils % (Manual) 6.0 H Basophils % 0.7 Basophils % (Manual) 1.0 Myelocytes % (Man) 0 Promyelocytes % (Man) 0 Blast Cells % (Manual) 0 Nucleated RBC % 0 Metamyelocytes 2 Hypochromia 0 Platelet Estimate Decreased Polychromasia 1+ Poikilocytosis 0 Anisocytosis 1+ Microcytosis 1+ Macrocytosis 0 Sodium 140 Potassium 3.3 L Chloride 106 Carbon Dioxide 24 Anion Gap 10 BUN 6 L Creatinine 0.4 L Creat Clearance w eGFR > 60 Random Glucose 132 H Calcium 7.6 L Phosphorus 3.0 Magnesium 1.7 L Total Bilirubin 1.8 H AST 105 H ALT 42 Alkaline Phosphatase 108 Total Protein 6.3 L Albumin 2.6 L Active Medications Generic Name Dose Route Start Last Admin Trade Name Freq PRN Reason Stop Dose Admin Acetaminophen 650 mg 04/11/18 10:13 04/12/18 17:09 Tylenol - PO 650 mg Q6H PRN Administration Fever Or Pain Folic Acid 1 mg 04/09/18 10:00 04/12/18 12:33 Folic Acid Injection - SQ 1 mg DAILY AILYN Administration Lactulose 30 gm 04/12/18 10:00 04/13/18 09:19 Cephulac (Oral Use) PO 30 gm BID AILYN Administration Lidocaine 1 patch 04/10/18 10:45 04/13/18 09:19 Lidoderm Patch - TP 1 patch DAILY AILYN Administration Lorazepam 2 mg 04/10/18 20:50 04/13/18 11:43 Ativan Injection - IVPUSH 2 mg Q3H PRN Administration ANXIETY Lorazepam 1 mg 04/13/18 06:00 04/13/18 14:56 Ativan Injection - IVPUSH 04/13/18 22:01 1 mg Q8H AILYN Administration Lorazepam 0.5 mg 04/14/18 08:00 Ativan Injection - IVPUSH 04/14/18 20:01 Q12H AILYN Miscellaneous 1 each 04/10/18 22:00 04/12/18 21:17 Lidoderm Patch Removal MC Not Given DAILY@2200 AILYN Potassium Chloride 40 meq 04/13/18 10:00 04/13/18 09:19 K-Dur - PO 40 meq BID AILYN Administration Thiamine HCl 250 mg 04/10/18 22:00 04/13/18 14:53 Vitamin B1 Injection - IVPB 250 mg TID AILYN Administration ASSESSMENT/PLAN: Patient is a 62 year old male with past medical history of heavy EtOH abuse, presented to the ED after an episode of witnessed tonic-clonic seizure at [facility]. #Seizure: likely 2/2 alcohol withdrawal -No episodes of seizures in the hospital -Detox (Dr. Prabhakar) consulted. Recommendations appreciated. -Ativan 4mg q6h for 5 doses completed -Ativan 1mg q8h 2/3 doses given. Then 0.5mg q12h 0/2 doses. -Ativan 2mg q3h PRN -Ammonia level - 67.4 -Lactulose 30gm BID -Hepatitis panel - negative -Thiamine 100mg daily -Folic acid 1mg daily -Follow LFTs -Nutrition consult. -Electrolytes monitor and repleted PRN -Fall risk precautions -Aspiration precautions -Elevate HOB #Fever: unknown etiology -Blood Cx negative for 24 hours -UA/Urine cx ordered -ID (Dr. Newsome) consulted. Recommendations appreciated. -No signs of infection on exam -Will await cultures -Will observe off antibiotics #Hypokalemia -K 3.3 -K-dur 40meq BID -Repeat bmp #Transaminitis likely 2/2 EtOH abuse -RUQ US: fatty liver vs hepatocellular disease -Thiamine 100mg daily -Folic acid 1mg daily -Follow LFTs #Thrombocytopenia -likely 2/2 EtOH abuse -107 today -will continue to monitor #Microcytic anemia -likely due to GI bleed, poor oral intake, EtOH abuse -Colonoscopy as outpatient #FEN -Not on any standing fluids -Hypokalemia, replete PRN -Routine bmp monitoring -Regular diet as tolerated #Prophylaxis -Lovenox 40mg sq daily #Disposition -full code -Tele Visit type - Emergency Visit Emergency Visit: Yes ED Registration Date: 04/09/18 Care time: The patient presented to the Emergency Department on the above date and was hospitalized for further evaluation of their emergent condition. - New Patient This patient is new to me today: No - Critical Care Critical Care patient: No
--- NOTE | 2018-04-13 18:24 | PN ---
Teaching Attending Note Name of Resident: Zulma Vasques ATTENDING PHYSICIAN STATEMENT I saw and evaluated the patient. I reviewed the resident's note and discussed the case with the resident. I agree with the resident's findings and plan as documented. SUBJECTIVE: No fever ro chills. No abd pain, no ESCOBAR . OBJECTIVE: NAD , awake, cooperative . CV: RRR, no mRG Lungs: CTAB ext : no edema , no tremor ASSESSMENT AND PLAN: 62 y/o man with h/o heavy alcohol use who presented after having a tonic clonic seizure in [facility] during intake exam. 1- Alcohol withdrawal , with withdrawal seizure: improved - cont ativan detox protocol - cont thiamine, but change to 100 mg po daily - cont folic , but change to po - will investigate potential for rehab 2- Possible liver disease, r/o cirrhosis ( hypoalbunemia, elevated INR, thrombocytopenia , elevated ammonia ) need GI f.u as out pt lactulose for constipation US reviewed. 3- New onset DM : A1c 7.3 sugar is controlled . will initiate po therapy as out pt 4- Thrombocytopenia : no bleeding . likley due to alcohol and potential liver disease 5- plt count > 100 k, start heparin for DVT px possible dc to [place] [facility] tomorrow .
[2018-04-13] MEDS: HEPARIN NA (PORCINE) 5,000 UNITS/ML 1ML VIAL SQ SCH (22:07)
[2018-04-13] MEDS: LIDOCAINE PATCH REMOVAL MC SCH (22:08)
[2018-04-13] MEDS: ACETAMINOPHEN 325 MG TABLET (FP) PO PRN (22:14)
[2018-04-13] MEDS ORDERED: chlordiazePOXIDE HCL 10 MG CAPSULE PO SCH (23:00)
[2018-04-14] MEDS: HEPARIN NA (PORCINE) 5,000 UNITS/ML 1ML VIAL SQ SCH ×3 (06:53→21:27)
[2018-04-14 07:38] LABS: HEMATOCRIT 29.5 % (35.4-49); HEMOGLOBIN 9.6 GM/dL (11.7-16.9); MCHC 32.4 g/dl (32.0-35.9); MEAN CELL VOLUME 83.4 fl (80-96); MEAN PLT VOLUME 8.1 fl (7.5-11.1); PLATELET COUNT 121 K/MM3 (134-434); RBC 3.54 M/mm3 (4.00-5.60); RDW 20.7 % (11.9-15.9); WHITE BLOOD COUNT 4.3 K/mm3 (4.0-10.0)
[2018-04-14 07:53] LABS: ANION GAP 6 MMOL/L (8-16); BLOOD UREA NITROGEN 6 mg/dL (7-18); CALCIUM 7.8 mg/dL (8.5-10.1); CHLORIDE 106 mmol/L (98-107); CO2 26 mmol/L (21-32); CREATININE 0.5 mg/dL (0.55-1.3); GLUCOSE,RANDOM 141 mg/dL (74-106); MAGNESIUM 1.9 mg/dL (1.8-2.4); PHOSPHOROUS 3.4 mg/dL (2.5-4.9); POTASSIUM 3.8 mmol/L (3.5-5.1); SODIUM 138 mmol/L (136-145)
[2018-04-14] MEDS ORDERED: LORazepam 2 MG/ML SDV VIAL IVPUSH SCH (08:00)
[2018-04-14] MEDS: LIDOCAINE 5% TOPICAL PATCH TP SCH (09:55)
[2018-04-14] MEDS: LACTULOSE 20 GM/30 ML UDC (FOR ORAL USE ONLY) PO SCH ×2 (09:55→21:27)
[2018-04-14] MEDS: POTASSIUM CHLORIDE TABS 20 MEQ TABLET.ER (FP) PO SCH ×2 (09:56→21:26)
[2018-04-14] MEDS ORDERED: FOLIC ACID 1 MG TABLET (FP) PO SCH (10:00)
[2018-04-14] MEDS ORDERED: THIAMINE HCL 100 MG TABLET (FP) PO SCH (10:00)
[2018-04-14] MEDS ORDERED: LORazepam 0.5 MG TABLET PO ONE ×2 (12:15→18:00)
--- NOTE | 2018-04-14 18:35 | PN ---
Teaching Attending Note Name of Resident: Arline Magallon ATTENDING PHYSICIAN STATEMENT I saw and evaluated the patient. I reviewed the resident's note and discussed the case with the resident. I agree with the resident's findings and plan as documented. SUBJECTIVE: No fever or chills . No abd pain . no other sx OBJECTIVE: NAD , awake, cooperative . CV: RRR, no mRG Lungs: CTAB ext : no edema , no tremor ASSESSMENT AND PLAN: 62 y/o man with h/o heavy alcohol use who presented after having a tonic clonic seizure in [facility] during intake exam. 1- Alcohol withdrawal , with withdrawal seizure: improved - last dose of ativan today - cont thiamine and folate - not accepted to alcohol rehab due to lack of insurance and family can't afford out of pocket expenses 2- Possible liver disease, r/o cirrhosis need GI f.u as out pt. referred to Dr. Ruano lactulose for constipation 3- New onset DM : A1c 7.3 start metformin at dc provided with script for glucometer , and RN Radha to teach him use 4- Thrombocytopenia : no bleeding . likely due to alcohol and potential liver disease Dispo : IN home
--- NOTE | 2018-04-14 18:39 | DS ---
Physical Exam: SUBJECTIVE: Patient seen and examined at bedside this morning. No acute events overnight. Patient is more awake and oriented today. He's out of bed and walking around. He has no complaints. He denies headache, dizziness, fever, chills, shaking, chest pain, SOB, palpitations, abdominal pain, diarrhea, urinary symptoms. OBJECTIVE: Vital Signs Period Temp Pulse Resp BP Sys/Theodore Pulse Ox Last 24 Hr 98.2 F-98.9 F 85-107 18-20 107-152/63-79 95-97 PHYSICAL EXAM GENERAL: The patient is awake, confused, oriented, not in acute distress HEAD: Normal with no signs of trauma. EYES/HEENT: PERRLA, EOMI, moist mucous membranes. NECK: Trachea midline, full range of motion, supple. LUNGS: Breath sounds equal, clear to auscultation bilaterally. HEART: Regular rate and rhythm, without murmur, rub or gallop. ABDOMEN: Soft, nontender, nondistended, normoactive bowel sounds. EXTREMITIES: 2+ pulses, warm, well-perfused, no edema. SKIN: Warm, dry, normal turgor. LABS Laboratory Results - last 24 hr 04/09/18 04/14/18 04/14/18 05:20 06:22 06:22 WBC 4.3 RBC 3.54 L Hgb 9.6 L Hct 29.5 L MCV 83.4 MCH 27.0 MCHC 32.4 RDW 20.7 H Plt Count 121 L MPV 8.1 Sodium 138 Potassium 3.8 Chloride 106 Carbon Dioxide 26 Anion Gap 6 L BUN 6 L Creatinine 0.5 L Creat Clearance w eGFR > 60 Random Glucose 141 H Calcium 7.8 L Phosphorus 3.4 Magnesium 1.9 HCV Quantitation Hcv not detected HCV RNA log copies/mL TNP Head CT: Moderate atrophy. No gross evidence of a focal intracranial lesion or hemorrhage. Right orbital medial wall chronic fracture. RUQ US: Fatty infiltration vs hepatocellular disease. No gallstones CXR: no acute lung pathology HOSPITAL COURSE: Date of Admission:04/09/18 Date of Discharge: 04/14/18 Patient is a 62 year old male with past medical history of heavy EtOH abuse, presented to the ED after an episode of witnessed tonic-clonic seizure at [facility]. Head CT was done. Detox consulted. Patient was started on Ativan protocol. Patient did not have any seizure episodes while in the hospital. He was noted to have elevated ammonia, and was started on Lactulose. Thiamine and folic acid were given. Patient was also noted to have transaminitis. Hepatitis panel was negative, and RUQ US showed fatty infiltration. HbA1c was elevated and patient was started on Metformin 500mg upon discharge. Patient completed the Ativan protocol and was discharged with instructions to follow-up with PCP and GI for further evaluation of liver disease. Minutes to complete discharge: 35 Discharge Summary Reason For Visit: ALCOHOL WITHDRAWAL SEIZURE Current Active Problems Alcohol withdrawal seizure (Acute) Diabetes mellitus (Acute) Condition: Improved - Instructions Diet, Activity, Other Instructions: Your visit You were admitted to the hospital for severe withdrawal from drinking alcohol, which caused you to have a seizure and lose consciousness. Imaging of your head was normal. you were also diagnosed with diabetes. Medications Please take the following medications as prescribed: 1. Folic acid 1 mg daily 2. Thiamine 100mg daily 3. Lactulose 20mg daily. Please do not take if you have diarrhea. 4. Metformin 500mg daily. for diabetes Care It is very important that you completely stop drinking alcohol. Continuing to drink alcohol can lead to worsening symptoms and health problems including liver failure and even . Do not drive or operate heavy machinery until you are seen by your doctor. NO driving until instructed by your doctor Avoid tylenol, motrin, ibuprofen/NSAIDs or any other Over the counter medications without discussion with your doctor We will provide you with outpatient resources in order to stop drinking. Alcohol[employer] anonymous is a good resource. Follow-up -Please follow-up with your primary care doctor within 1 week. You will also need to discuss your diabetes. -Please also see: a paperback machine operator (GI), Dr. Vito Shaikh - 1 week. To discuss your liver disease, as cirrhosis of the liver need to be investigated Additional info Call 911 or go to the ED if with any worsening headache, dizziness, loss of consciousness, weakness or numbness, or have any seizures, jaundice, belly pain , dark or bloody stools, nausea/vomiting, or any new concerns noted. low sugar , low fat diet . daily exercise we prescribed you a glucometer. please check your sugar twice a day in am before breakfast and before dinner. take log to your doctor. Referrals: [facility] [place] [Provider Group] - 04/20/18 William Shaikh DO [Staff Physician] - 1 Week Disposition: HOME - Home Medications Comprehensive Discharge Medication List: Ambulatory Orders Lactulose (Oral Use) [Cephulac -] 20 gm PO DAILY #1 bottle 04/14/18 Metformin HCl [Metformin HCl ER] 500 mg PO DAILY #30 tab.[id number] 04/14/18 Miscellaneous Medical Supply [Glucometer Device] 1 each SQ ASDIR #1 kit Miscellaneous Medical Supply [Glucometer Test Strips #100] 1 each SQ ASDIR #1 box 04/14/18 Miscellaneous Medical Supply [Lancets] 1 each SQ ASDIR #1 box 04/14/18 This patient is new to me today: No Emergency Visit: Yes ED Registration Date: 04/09/18 Care time: The patient presented to the Emergency Department on the above date and was hospitalized for further evaluation of their emergent condition. Critical Care patient: No - Discharge Referral Referred to [facility] Med [facility] No
[2018-04-14 20:14] VITALS: BP 117/77; PULSE 102; TEMP 97.9
== END 2018-04-14 21:36 | disposition home or self-care (01) | DRG 775 ==
LOC: JER 22:23 → JERBED 04-09 01:58 → UNDOADMOB 04-09 02:39 → JERBED 04-09 02:39 → OBSVTOIN 04-09 03:19 → J4W 04-09 13:42
PROVIDERS: ADMIT Internal Medicine; ATTEND Internal Medicine
PROC: HZ2ZZZZ Detoxification Services for Substance Abuse Treatment (ICD-10-PCS; principal; 2018-04-09)
DX: F10.239 Alcohol dependence with withdrawal, unspecified (principal); R56.9 Unspecified convulsions; E11.9 Type 2 diabetes mellitus without complications; D69.6 Thrombocytopenia, unspecified; K59.00 Constipation, unspecified; E87.6 Hypokalemia; R74.0 Nonspecific elevation of levels of transaminase and lactic acid dehydrogenase [LDH]; D50.9 Iron deficiency anemia, unspecified; M25.511 Pain in right shoulder; R50.9 Fever, unspecified; K70.30 Alcoholic cirrhosis of liver without ascites; E88.09 Other disorders of plasma-protein metabolism, not elsewhere classified; K92.2 Gastrointestinal hemorrhage, unspecified
CPT/HCPCS: 36415; 70450-TC; 71045-TC-FY; 76705-TC; 80048; 80053; 80307; 81003; 81015; 82140; 82248; 82962; 83036; 83540; 83550; 83735; 84100; 84466; 85025; 85027; 85044; 85610; 86705; 86706; 86707; 87040; 87086; 87350; 87522; 90715; 93005; 93010; 97116-GP; 97161-GP; 99283-25; G0378; J1644; J7030